=== PATIENT | female | born 1930 | race Caucasian/White ===

== ENCOUNTER 2018-03-14 20:16 | Inpatient (IN) ==
[2018-03-14] MEDS ORDERED: ROCEPHIN 1 GM in NS 50 ML IV ONE (21:26)
[2018-03-14] MEDS ORDERED: NS 1,000 ML IV ONE (21:27)
--- NOTE | 2018-03-14 21:59 | Diag Imaging Result Doc PS360 ---
CHEST-1 VIEW - 03/14/2018 INDICATION: AMS COMPARISON: 02/24/2018 FINDINGS: There is cardiomegaly and pulmonary vascular congestion. There are ill-defined interstitial infiltrates in the lung bases, nonspecific but most suggestive of pulmonary edema. There are probably trace pleural effusions. IMPRESSION: Pulmonary edema. Electronically signed by Rakesh Garcia 03/14/2018 9:56 PM
[2018-03-14 22:21] LABS: BASO# 0.02 X1000 (0.0-0.2); BASO% 0.1 % (0.0-0.8); EOS# 0.01 X1000 (0.0-0.7); EOS% 0.1 % (0.0-10.0); HEMATOCRIT 41.3 % (37.0-47.0); HEMOGLOBIN 13.6 g/dL (12.0-16.0); IMM GRAN# 0.22 X1000 (0.0-0.04); IMM GRAN% 1.4 % (0.0-0.5); LYMPH# 2.07 X1000 (1.2-3.4); LYMPH% 12.9 % (20.5-51.1); MCH 28.3 PG (27-31); MCHC 32.9 g/dL (33-37); MONO# 0.98 X1000 (0.11-0.59); MONO% 6.1 % (1.7-9.3); MPV 12.5 FL (7.4-10.4); NEUT# 12.71 X1000 (1.4-6.5); NEUT% 79.4 % (42.2-75.2); PLT 256 X1000 (130-400); RDW 14.9 % (11.5-14.5); WBC 16.01 X1000 (4.8-10.8)
[2018-03-14 22:34] LABS: INR 2.23; PROTIME 26.4 Seconds (11.0-16.0)
[2018-03-14 22:35] LABS: PTT 38.3 Seconds (22.3-41.8)
[2018-03-14 22:51] LABS: ALB/GLOB RATIO 1.1; ALBUMIN 3.2 g/dL (3.5-5.0); CALCIUM 8.3 mg/dL (8.8-10.2); POTASSIUM 4.8 mmol/L (3.5-5.1); TOTAL BILIRUBIN 1.26 mg/dL (0.20-1.00)
[2018-03-14] MEDS ORDERED: CARDIZEM IV ONE (23:16)
[2018-03-14 23:28] LABS: BILIRUBIN URINE SMALL (NEGATIVE); BLOOD URINE SMALL (NEGATIVE); COLOR YELLOW; GLUCOSE URINE NEGATIVE (NEGATIVE); KETONE URINE 10 mg/dL (NEGATIVE); LEUKOCYTES URINE SMALL (NEGATIVE); NITRITE URINE NEGATIVE (NEGATIVE); PROTEIN URINE 30 mg/dL (NEGATIVE); SP GRAVITY URINE 1.022; TURBIDITY URINE CLEAR (CLEAR); URINE SOURCE CATH; UROBILINOGEN URINE NORMAL (NORMAL)
[2018-03-14 23:41] LABS: UR EPITHELIAL CELLS >10 /HPF (<10); URINE BACTERIA NEGATIVE /HPF; URINE RBC <10 /HPF (<10); URINE WBC <10 /HPF (<10)
[2018-03-14 23:49] LABS: URINE CASTS NONE SEEN; URINE CRYSTALS NONE SEEN; URINE SMALL ROUND CELLS NONE SEEN; URINE YEAST NONE SEEN
[2018-03-14 23:58] LABS: CK INDEX 3.7 (0.0-2.5); CK-MB 16.56 ng/mL (0.0-5.0)
--- NOTE | 2018-03-15 01:51 | PROVIDER DOCUMENTATION ---
This chart was entered by Ainsley Marie Scribe, acting as scribe for Monika Bo MD. HPI-General Adult - General Chief Complaint: Abnormal Lab[s] Stated Complaint: ABNORMAL LABS Time Seen by Provider: 03/14/18 21:04 Source: patient Allergies/Adverse Reactions: Patient Allergies Allergy/AdvReac Type Severity Reaction Status Date / Time codeine Allergy Severe syncope Verified 03/14/18 22:35 oxycodone AdvReac Severe Unknown Verified 03/14/18 22:35 Home Medications: Home Medication List Medication Instructions Recorded Confirmed Last Taken Type Aspirin 81 mg PO DAILY 05/14/13 03/14/18 09/30/14 08:30 History 81 Sotalol [Betapace] 40 mg PO HS 05/14/13 03/14/18 10/01/14 07:00 History 40 Multivitamin [Multivitamins] 1 each PO DAILY 08/11/14 03/14/18 09/30/14 08:30 History 1 Apixaban [Eliquis] 2.5 mg PO DAILY tablet 03/03/18 03/14/18 Unknown Rx Calcitonin [Fortical] 1 spray JAMES DAILY bottle 03/03/18 03/14/18 Unknown Rx Doxycycline Hyclate 100 mg PO BID #60 tab 03/03/18 03/14/18 Unknown Rx Buspirone HCl 5 mg PO BID 03/14/18 03/14/18 Unknown History Calcitonin [Calcitonin-[place]] 1 spray JAMES DAILY 03/14/18 03/14/18 Unknown History Mag Hydrox/Al Hydrox/Simeth 40 mg PO Q4H PRN PRN 03/14/18 03/14/18 Unknown History [Mylanta Maximum Strength Liq] Ranitidine HCl 150 mg PO BID 03/14/18 03/14/18 Unknown History Sotalol [Betapace] 80 mg PO DAILY 03/14/18 03/14/18 Unknown History - History of Present Illness -Gen Adult Nature of Presenting Problems: 87 Y/O F PRESENTS TO ED WITH GENERAL ADULT. PT HAS A HX OF DEMENTIA, AFIB, ALCOHOL DEPENDENCE. SENT HERE DUE TO ABNORMAL LABS, ELEVATED LIVER ENZYMES,CK, WBC. POOR HISTORIAN. NURSE FROM [facility] STATES THAT SHE'S A&OX3, NOT DRINKING FLUID FOR FEW DAYS. PT STATES THIRSTY. Location of Pain/Injury: reports: generalized Pain Radiation: reports: no radiation Quality of Pain: reports: none Severity: reports: moderate Onset/Duration: reports: this evening Timing: reports: still present Context/Activities at Onset: reports: none Modifying Factors: improves with: nothing Associated Symptoms: reports: other (dehydrated). denies: constipation, EENT symptoms, fever/chills, muscle aches, sinus congestion/drainage, nausea, pain with inspiration, weakness Review of Systems - Adult - REVIEW OF SYSTEMS - ADULT Constitutional: denies: chills, fever Eyes: reports: no symptoms reported Ears, Nose, Mouth & Throat: reports: other (dehydrated). denies: ear discharge , nose pain, loose teeth Cardiovascular: reports: no symptoms reported Respiratory: reports: no symptoms reported Gastrointestinal: reports: no symptoms reported Genitourinary: reports: no symptoms reported Musculoskeletal: reports: no symptoms reported Integumentary: reports: no symptoms reported Neurological: reports: no symptoms reported Psychiatric: reports: no symptoms reported Endocrine: reports: increased thirst Hematologic/Lymphatic: reports: no symptoms reported Allergic/Immunologic: reports: no symptoms reported All Other Systems: Reviewed and Negative Past History - Adult - PAST MEDICAL HISTORY-ADULT Review of Records: reports: Old Records Reviewed, Nursing Assessment Review, Medications Reviewed, Social history reviewed & non-contributory. Major Childhood Illnesses: reports: denies history Cardiovascular: reports: cardiac disease, HTN Musculoskeletal: reports: osteoporosis Endocrine/Immune: reports: thyroid disorder (benign thyroid nodule) - PRIOR SURGERIES/PROCEDURES Surgical/Procedure History: reports: orthopedic (extremity), back/neck - IMMUNIZATION STATUS Childhood Immunizations: See Nurse Assessment Flu Vaccine: See Nurse Assessment - FAMILY HISTORY Family History: reviewed, not pertinent - SOCIAL HISTORY Smoking: non-smoker Substance Use: none/never Alcohol Use Frequency: sober (former use) Living Situation: care facility Physical Exam-General - PHYSICAL EXAM-ADULT Initial Vital Signs Reviewed: Yes - CONSTITUTIONAL General Appearance: alert, no apparent distress - HEAD, EARS, NOSE, MOUTH & THROAT HENMT: other (dry mucous membrane). negative: moist mucous membranes - NECK Neck: supple - RESPIRATORY Respiratory: lungs clear - CARDIOVASCULAR Cardiovascular: no murmur, tachycardia (150s), irregularly irregular - GASTROINTESTINAL (ABDOMEN) Abdominal Exam: non tender, soft - LYMPHATIC Lymphatic: no adenopathy - MUSCULOSKELETAL Back Exam: no CVA tenderness Extremity: normal range of motion - SKIN Integumentary: normal color - NEUROLOGIC Neurologic: no motor/sensory deficits Progress - PLAN OF CARE/RESULTS Progress/Plan/Lab Results: Vital Signs - 8 hr 03/14/18 21:22 Pulse Rate 46 L Respiratory Rate 13 Blood Pressure 101/83 Orders Category Date Time Status Cardiac Monitoring DIRECTED Care 03/14/18 21:32 Active IV Insertion ORDERED Care 03/14/18 21:32 Active Notify MD of + Sepsis Screen NOW Care 03/14/18 21:32 Active Notify Physician As Ordered Care 03/14/18 21:32 Active CHEST-1 VIEW [RAD] Stat Exams 03/14/18 21:32 Ordered BLOOD CULTURE [BLDCUL] Stat Lab 03/14/18 21:32 Uncollected CBC WITH DIFF [HEME] Stat Lab 03/14/18 21:32 Uncollected CK PROFILE [SP CHEM] Stat Lab 03/14/18 21:32 Uncollected COMPREHENSIVE METABOLIC PANEL [CHEM] Stat Lab 03/14/18 21:32 Uncollected LACTATE, PLASMA [CHEM] Q3H Lab 03/14/18 21:45 Uncollected LACTATE, PLASMA [CHEM] Q3H Lab 03/15/18 00:45 Uncollected LACTATE, PLASMA [CHEM] Q3H Lab 03/15/18 03:45 Uncollected PROTIME WITH INR [COAG] Stat Lab 03/14/18 21:32 Uncollected PTT [COAG] Stat Lab 03/14/18 21:32 Uncollected TROPONIN T Stat Lab 03/14/18 21:32 Uncollected URINALYSIS W/POSS RFLX CULT [URINALYSIS] Stat Lab 03/14/18 21:32 Uncollected 0.9% Sodium Chloride Inj [Ns] 1,000 ml Med 03/14/18 21:27 Active IV 999 mls/hr CefTRIAXONE [Rocephin] 1 gm Med 03/14/18 21:26 Active 0.9% Sodium Chloride Inj [Ns] 50 ml IV NOW Oxygen Device Stat Oth 03/14/18 21:32 Active EKG [EKG] Stat Ther 03/14/18 21:21 Ordered Result Diagrams: 03/14/18 21:40 03/14/18 21:40 - REASSESSMENT Reassessment #1 Time Reassessed: 00:00 Status: improving (HR 110-115 after 1 dose Cardizem 10 Mg. will admit to the Hospital for further management.) - EKG 1 Time of EKG reading by physician:: 22:08 EKG Read and Signed by:: Monika Bo EKG Interpretation (*Must complete 3 of following elements*): Abnormal Rate: 147 Rhythm: afib with rvr Comments: abnormal ecg - CT/MRI 1 CT Study: Abdomen, Orbits Impression: Abnormal (status pot cholecystectomy. bialteral pleural effusions. bilateral interstitial infiltrates, findings progressive compared to previous exams. pulmonary edema oy lymphangitic carcinomatosis are considerations. extensive sigmoid colon diverticulosis. possible diverticulitis involving the distal sigmoid colon, a new finding compared to previous. RUQ subhepatic edema, progressive compared to the previous exam nonspecific may reflect liver diseases are colitis.) 2 CT Study: Angiogram Impression: Normal CT Results: no pe - CONSULTS/PCP/HOSPITALIST Notification #1 *Consult/PCP/Hospitalist*: Dr. Suarez Time Discussed: 23:52 Consult Disposition: Admit (Cardizem and admit.) #2 Consult: Dr. Lucio gutiérrez Time Discussed: 00:07 Consult Disposition: Admit (Accepted.) Departure - Departure Date of Disposition Decision: 03/15/18 Time of Disposition Decision: 00:07 DIAGNOSIS: JOSE (acute kidney injury), Atrial fibrillation with rapid ventricular response , Severe dehydration Leukocytosis Qualifiers: Leukocytosis type: other Qualified Code(s): D72.828 - Other elevated white blood cell count Pulmonary edema Qualifiers: Chronicity: acute Qualified Code(s): J81.0 - Acute pulmonary edema Disposition: ADMITTED INPATIENT 09 Certified Medical Emergency: Emergent Condition: Serious Referrals and Follow-Ups: Nito Crain MD [Primary Care Provider] - - Critical Care Note This patient required my direct & personal management of CC.: Yes Attestation - Physician/ KALINA Attestation Patient care was provided by Advanced Practice Provider:: No The physician spent face to face time with patient:: Yes Advanced Practice Provider documentation review:: Supervising physician onsite and consulted in the evaluation and care of this patient. The physician did have a face to face encounter with the patient. This chart was documented by the indicated scribe, (Ainsley aMrie, Mickey) and accurately reflects the services I performed and decisions made by me, Monika Bo MD, as attested by the provider's signature.
[2018-03-15] MEDS ORDERED: CARDIZEM IV ONE ×2 (06:26→11:53)
[2018-03-15] MEDS ORDERED: NS 250 ML IV SCH ×2 (06:30→07:00)
--- NOTE | 2018-03-15 07:17 | EKG Report ---
Test Performed on : 03/14/2018 10:08:38 PM Test Reason : CP Blood Pressure : / mmHG Vent. Rate : 147 BPM Atrial Rate : 300 BPM P-R Int : 000 ms QRS Dur : 080 ms QT Int : 308 ms P-R-T Axes : 000 066 004 degrees QTc Int : 482 ms Atrial flutter. with variable AV block. Abnormal ECG When compared with ECG of 03-MAR-2018 06:57, Atrial flutter. has replaced Sinus rhythm. Vent. rate has increased BY 67 BPM Questionable change in QRS axis T wave inversion no longer evident in Anterior leads Unconfirmed Result
--- NOTE | 2018-03-15 07:52 | Diag Imaging Result Doc PS360 ---
EXAM: CT ABDOMEN/PELVIS W/O CONTRAST INDICATION: elevated liver enzyme TECHNIQUE: This exam was performed using automated exposure control, adjustment of mA or kV according to patient size, and/or use of iterative reconstruction technique. COMPARISON: 02/17/2018 FINDINGS: There is a small to moderate-sized right pleural effusion and a small left effusion. There is atelectasis at both lung bases. There are bilateral interstitial and airspace infiltrates suggesting pulmonary edema +/- pneumonia. There is cardiomegaly. There has been a prior cholecystectomy. There is stable mild compensatory dilatation of the common bile duct, expected. The liver, spleen, pancreas, and adrenal glands are essentially unremarkable as imaged with unenhanced CT. There are a couple of hyperdense nodules involving the left renal cortex that are stable. Statistically they most likely represent complex cyst containing blood products but are technically nonspecific when no IV contrast is administered. The kidneys are essentially unremarkable, otherwise. There is a Davidson catheter in the urinary bladder and the bladder is nondistended. As imaged, the reproductive tract is essentially unremarkable. There is extensive diverticulosis coli involving the sigmoid colon. There is trace free fluid layering in the pelvis. It is nonspecific. I feel that sigmoid colonic diverticulitis is unlikely as there is no obvious colonic wall thickening, but I suppose mild diverticulitis is possible. There is a small amount of subhepatic mesenteric edema in the right upper quadrant that is nonspecific. It is situated between the right hepatic lobe and the hepatic flexure of the colon. Note that there is also no evidence of colonic wall thickening here as well. There is no evidence of bowel obstruction. The remainder of the GI tract is essentially unremarkable as imaged. A small umbilical hernia containing only fat. The bones are osteopenic. There is multilevel spondylosis and multiple compression deformities throughout the visualized spine similar to the previous study. IMPRESSION: 1.Bilateral pleural effusions and bilateral infiltrates at the lung bases that are predominantly interstitial as detailed above. 2.Diverticulosis coli with trace nonspecific fluid layering in the pelvis. Please see above discussion. 3.Nonspecific focal mesenteric edema in the subhepatic right upper quadrant. 4.Other external/nonacute findings detailed above. Electronically signed by Pj Green 03/15/2018 7:50 AM
--- NOTE | 2018-03-15 08:43 | HISTORY AND PHYSICAL ---
PRIMARY CARE PHYSICIAN: Dr. Crain. CHIEF COMPLAINT: Weakness and abnormal labs. HISTORY OF PRESENT ILLNESS: This is an 87-year-old alert female with a history of hypertension, hyperlipidemia, chronic alcoholism, chronic atrial fibrillation, and dementia, who apparently was discharged from the hospital about a week or so ago. She was sent to the rehab facility. During her course there she was doing well; however, over the past several days she was getting weak and was not eating well. She had laboratories drawn there which did show that she was in renal failure and also showed that she had abnormal LFTs. Due to her finding she was sent to the emergency department. In the ER, she was evaluated. She was noted to be in atrial fibrillation with rapid ventricular response. She was started on Cardizem. Due to her presenting symptoms, she will require admission for further management. At the time of my examination, the patient is a poor historian. However, at time of my examination, she had denied any headache, fever, chills, chest pain, shortness of breath, or any weight changes. Most of the history is obtained from the son and previous records. PAST MEDICAL HISTORY: Past medical history includes hypertension, hyperlipidemia, chronic alcoholism, chronic atrial fibrillation, dementia, and lumbar compression fractures. PAST SURGICAL HISTORY: Right knee surgery. ALLERGIES: Codeine and oxycodone. MEDICATIONS: Current medications are as listed in the medication reconciliation sheet. SOCIAL HISTORY: No history of smoking. She admits to drinking scotch and wine daily, denies any illicit drug use. FAMILY HISTORY: No history of coronary disease. REVIEW OF SYSTEMS: Fourteen point review of systems is as in HPI. Other systems are negative. PHYSICAL EXAMINATION: GENERAL: A frail elderly female. She is resting comfortably now. VITAL SIGNS: Temperature 97.5 degrees, pulse 153, respirations 19, blood pressure 125/80. HEENT: Atraumatic and normocephalic. Extraocular movements are intact, PERRLA. NECK: No masses. CHEST: Bibasilar rales. CARDIOVASCULAR: Irregular. ABDOMEN: Abdomen is soft, positive bowel sounds. EXTREMITIES: Trace edema. NEUROLOGIC: She is awake, alert, and oriented times 2. GENITOURINARY: No bladder distention. SKIN: Skin is warm. LABORATORIES AND STUDIES: WBC 16.01, hemoglobin 13.6, hematocrit 41.3, platelets 256,000. Sodium 143, potassium 4.8, chloride 105, CO2 is 15 BUN is 61, creatinine is 2.0, glucose is 93. AST is 677, ALT is 382, alkaline phosphatase is 111, proBNP is 14,329. Chest x-ray shows pulmonary edema. ASSESSMENT: This is an 87-year-old elderly female with a history of hypertension, hyperlipidemia, chronic atrial fibrillation, and dementia who was brought to the emergency department due to abnormal labs that were noted while she was at the rehabilitation facility. The patient initially was found to be in atrial fibrillation with rapid ventricular response. She was given IV Cardizem. She was also noted to be in renal failure and have abnormal liver function tests. Due to these findings, she will require admission for further management. 1. Atrial fibrillation with rapid ventricular response. 2. Leukocytosis. 3. Status post recent treatment for pneumonia. 4. Acute kidney injury. 5. Abnormal liver function tests. 6. Chronic alcoholism. 7. Dementia. PLAN: 1. We will admit the patient to [facility]. 2. Continue with Cardizem and consult Cardiology. 3. We will check blood cultures and start the patient on empiric antibiotics. 4. Continue with gentle hydration and monitor renal function. 5. Check an abdominal ultrasound to evaluate her liver. 6. Restart other home medications. 7. Put the patient on DVT prophylaxis with SCDs. 8. We will continue to follow and reassess and make further recommendations based on the patient's clinical course. cc: MD Nito Dunlap MD
[2018-03-15] MEDS ORDERED: FORTICAL NAS SCH (09:00)
[2018-03-15] MEDS ORDERED: BUSPAR PO SCH ×2 (09:00→09:39)
[2018-03-15] MEDS: ZANTAC PO SCH ×3 (09:07→21:37)
[2018-03-15] MEDS: ELIQUIS PO SCH (09:07)
[2018-03-15] MEDS: THERA M PLUS PO SCH (09:08)
[2018-03-15] MEDS: BETAPACE PO SCH ×2 (09:08→21:36)
[2018-03-15] MEDS: ASPIRIN PO SCH ×2 (09:10→09:25)
[2018-03-15] MEDS: ZOFRAN IV PRN (09:21)
[2018-03-15] MEDS ORDERED: NS 1,000 ML IV ONE (09:27)
--- NOTE | 2018-03-15 10:18 | Diag Imaging Result Doc PS360 ---
US ABDOMEN-COMPLETE - 03/15/2018 INDICATION: ABNORMAL LFT COMPARISON: CT from 03/15/2018 FINDINGS: There is mild diffuse fatty change of the liver. There is a hypoechoic left renal cyst measuring 1.6 cm. This probably a complicated cyst. Otherwise both kidneys are normal. The gallbladder is absent. Common bile duct measures 4 mm. No free fluid. The pancreas and spleen are normal. Aorta, IVC, and main portal vein are patent. IMPRESSION: Mild fatty change of the liver. Complicated cyst of the left kidney. Electronically signed by Rakesh Garcia 03/15/2018 10:16 AM
[2018-03-15] MEDS: CARDIZEM 100 MG/NS 100 MG/100 ML IVPB IV SCH (12:59)
--- NOTE | 2018-03-15 19:14 | CARDIOLOGY CONSULTATION ---
DATE: 03/15/2018 REQUESTING PHYSICIAN: Dr. Crain of the hospitalist service. REASON FOR CONSULTATION: Atrial fibrillation with rapid response. HISTORY OF PRESENT ILLNESS: Ms. Mcfarlane is an unfortunate 87-year-old female that is known to me. I saw her last time at my office back in May 2013. Since then, she had been seen in the hospital by myself around May 2014. Lately she was admitted to the hospital on February 17 with pneumococcal pneumonia. She had a positive blood culture for Streptococcus pneumoniae. She was sent to a group home on March 03. For the past few days she has not been doing well at the group home, getting progressively weaker, not eating well, and they did blood work that showed abnormalities, and also they noted that her heart rate was fast and irregular. They recommended admission to the hospital, and they consulted us because of the atrial fibrillation with rapid response. The patient denies having any pain in the chest. She just feels weak. She is lethargic. She recognizes me. She denies having any swelling of her legs or pain in the legs. She has not had any syncopal episodes. PAST MEDICAL HISTORY: Her past history is significant for paroxysmal atrial fibrillation in the past. Now it has become permanent. The patient has had previous syncopal episodes. She has moderately severe mitral regurgitation documented in the past. She has a history of hypertension and hyperlipidemia. She has had osteoporosis. PAST SURGICAL HISTORY: Hip surgery, collarbone surgery, knee surgery, polyp on the thyroid gland removed, cataract extraction SOCIAL HISTORY: She is a . She has 2 grown-up children. She is not a smoker. She used to drink alcohol regularly. HOME MEDICATIONS: At the time of this admission, these included: 1. Apixaban 2.5 daily. 2. Aspirin 81 daily.l 3. Buspirone 5 mg twice daily. 5. Calcitonin one spray nasally. 6. Doxycycline 100 twice daily. 7. Sotalol 40 at bedtime and 80 in the morning. LABORATORY STUDIES: Her laboratory studies upon presentation showed a white count of 16,000 and a PT of 26.4 with an INR of 2.23. Sodium is 143, potassium 4.8, BUN 61, creatinine 2.0. Her AST is 77, ALT 382, alkaline phosphatase 111. CPK is 445. Pro-BNP is 14,000. A chest x-ray done in the emergency room showed pulmonary edema, ill-defined interstitial infiltrates in the lung bases. Abdominal ultrasound shows mild fatty liver, complicated cyst of the left kidney. Her EKG back on February 18 showed that she was in sinus rhythm. On March 03, her EKG showed that she was also in sinus rhythm, so she really has paroxysmal atrial fibrillation and no permanent atrial fibrillation. PHYSICAL EXAMINATION: Vital Signs: Blood pressure is 123/84, pulse rate 122, temperature 97.4, respirations 18. General: She is elderly and appears to be somewhat confused and lethargic. HEENT: She has an IV on the left side of the neck. Chest: Shows diffusely diminished breath sounds. She has a few rales. Cardiovascular: Heart sounds are tachycardic, irregularly irregular, with a systolic murmur 2/6 over the apex of the left ventricle. Abdomen: Soft and nontender. Extremities: Show decreased pulses. No peripheral edema. Neurologic: Follows commands. Moves 4 extremities. IMPRESSION: 1. Patient with paroxysmal atrial fibrillation with rapid response. 2. Congestive heart failure with diastolic dysfunction. 3. History of pneumonia recently with positive blood culture for Streptococcus pneumoniae. 4. Passive liver congestion versus acute hepatic injury. 5. Acute renal dysfunction/renal failure. RECOMMENDATIONS: 1. We will put the patient on IV Cardizem to control her heart rate, which is really going fast right now. 2. We will follow her closely. 3. Given her age and her general frailty and decreased functional status, her prognosis is quite guarded. cc: MD Nito Linton MD
[2018-03-15] MEDS: FORTICAL NAS SCH (21:37)
[2018-03-16] MEDS: CALMOSEPTINE OINTMENT TOP PRN (03:37)
--- NOTE | 2018-03-16 04:45 | PROGRESS NOTE ---
DATE: 03/15/2018 SUBJECTIVE: The patient was admitted overnight. I spoke at length with her son, who recapture rehabilitation stay at [facility] for me. The patient had a rapid decline this weekend, and only at the extreme urging of the patient's family, where she transferred to [place] for admission. OBJECTIVE: Vital Signs: Temperature 97.4, pulse rate of 117, blood pressure 123/84. Lungs: Are clear. Cardiovascular: Irregularly, irregular at approximately 90 beats per minute at the time of my examination in the morning. The patient's oral mucosa is dry and almost parched. She has no peripheral edema. Lungs: Clear to auscultation. LABORATORIES: Reviewed. ASSESSMENT AND PLAN: 1. The admission is a bit difficult to put together. At the same time, there is an elevated proBNP and a diagnosis of congestive heart failure, but she is also described as markedly dehydrated and having acute kidney injury. I do not really feel it can be both at the same time. In my viewpoint, she is dehydrated clinically, and I plan to give her a bolus of fluids. She is prone to fluid overloaded at times, and we will have to watch this. But at the present time, none of those physical signs or symptoms seem to be predominant. 2. I was distressed to learn that at the rehabilitation place, someone had placed the patient on a benzodiazepine. She had been taken off of that type of medication during her hospitalizations for over-sedation and change in mental status. 3. Nutrition is strongly encouraged. We will restart physical therapy as soon as practical. 4. The patient's atrial fibrillation had clearly gotten out of control. She received some Cardizem last night. When I rechecked the patient's vital signs, her heart rate had slowed down considerably from admission. 5. Do not resuscitate level 1. cc: Nito Crain MD
[2018-03-16 06:05] LABS: BASO# 0.03 X1000 (0.0-0.2); BASO% 0.2 % (0.0-0.8); EOS# 0.01 X1000 (0.0-0.7); EOS% 0.1 % (0.0-10.0); HEMATOCRIT 39.9 % (37.0-47.0); IMM GRAN# 0.21 X1000 (0.0-0.04); IMM GRAN% 1.5 % (0.0-0.5); LYMPH# 1.76 X1000 (1.2-3.4); LYMPH% 12.8 % (20.5-51.1); MCH 28.9 PG (27-31); MCHC 32.6 g/dL (33-37); MCV 88.7 FL (81-99); MONO# 0.76 X1000 (0.11-0.59); MONO% 5.5 % (1.7-9.3); MPV 12.4 FL (7.4-10.4); NEUT# 10.97 X1000 (1.4-6.5); NEUT% 79.9 % (42.2-75.2); PLT 231 X1000 (130-400); RDW 15.5 % (11.5-14.5); WBC 13.74 X1000 (4.8-10.8)
[2018-03-16 06:20] LABS: CREATININE 1.4 mg/dL (0.5-0.9); POTASSIUM 4.9 mmol/L (3.5-5.1)
[2018-03-16] MEDS: CARDIZEM 100 MG/NS 100 MG/100 ML IVPB IV SCH (06:38)
[2018-03-16] MEDS ORDERED: 1/2 NS 500 ML IV ONE (07:20)
[2018-03-16] MEDS: ASPIRIN PO SCH (08:25)
[2018-03-16] MEDS: THERA M PLUS PO SCH (08:25)
[2018-03-16] MEDS: ZANTAC PO SCH ×2 (08:25→21:03)
[2018-03-16] MEDS: ELIQUIS PO SCH (08:25)
[2018-03-16] MEDS: BETAPACE PO SCH ×2 (08:26→21:03)
[2018-03-16] MEDS: FORTICAL NAS SCH (08:26)
--- NOTE | 2018-03-16 11:24 | PROGRESS NOTE ---
DATE: 03/16/2018 SUBJECTIVE: In looking through the patient's notes and talking to the family, she appeared better yesterday. Activity level minimal. She received a food bolus and some rate-controlled medication for her atrial fibrillation. Dr. Daniel was consulted. OBJECTIVE: Vital signs: 96.4, 76, 17, 110/67, 98% saturated on 3 liters nasal cannula. General: The patient is awake and alert. Appropriate mentation, asking questions, observed in the baseline, but her hearing is so bad that is hard to assess for cognition. Neck: There is JVD noted on the right side in the recumbent or semi-recumbent position. The left side is obscured due to an EJ they put in, which is taped out fairly heavily. Lungs: Clear to auscultation. Cardiovascular: There is approximately 80 beats per minute that is irregular. She has 2/6 systolic murmur. Extremities: No peripheral edema. ASSESSMENT AND PLAN: 1. Patient's has acute kidney injury. Giving her a fluid bolus. I am going to give her a half- normal bolus today to try and get her electrolytes equilibrated and to further improve her renal function. In the past, she has been prone to fluid overload. This occurred during her last hospitalization, so I am just going to go with intermittent bolusing and monitor total fluid levels. The jugular venous distention noted on exam is of some concern. 2. Patient's atrial fibrillation is controlled with the addition of diltiazem. Dr. Daniel is following. The patient is really not a candidate for serious intervention. 3. The patient was discharged from the hospital last time with a fairly serious rash on her buttocks and thighs. I again consulted Wound Therapy to assess and treat this. 4. The patient's overall weakness has been improving at rehabilitation up until the last 2 days prior to admission. Plan to consult physical therapy to get the patient up in the chair as much as is tolerable. She is generally somewhat uncooperative and recalcitrant effort to get her up in the past. 5. The patient and family were encouraged strongly to eat and to drink regularly, and to cooperate with the medical care team. cc: Nito Crain MD
[2018-03-16] MEDS: POTASSIUM CHLORIDE 10 MEQ in D5 LR 1,000 ML IV SCH (15:53)
--- NOTE | 2018-03-16 16:40 | CARDIOLOGY PROGRESS NOTE ---
DATE: 03/16/2018 CHIEF COMPLAINT: Irregular heart beat. Confusion. Lethargy. SUBJECTIVE: Mrs. Mcfarlane is really just lying in bed without any desire to eat. She is in no pain. She does not appear to be in any distress. PHYSICAL EXAMINATION: Vital Signs: Blood pressure 110/53, temperature 97.6, pulse is about 95, respirations 16. Neurologic: She seems to follow commands. She does not want to have the nasal cannula in her nose. She interacts, however she appears to be despondent. HEENT: Unremarkable. Chest: Diminished breath sounds at bases. Cardiovascular: Heart sounds are irregularly irregular. Heart rate is not as fast as yesterday. Abdomen: Nontender. Extremities: Show no obvious edema. BLOOD WORK: Today, sodium is 147, potassium 4.9, BUN is 54, creatinine 1.4. C reactive protein yesterday was 21.33. Sed rate was 10. IMPRESSION: 1. Atrial fibrillation with rapid response. This is paroxysmal. 2. History of mitral regurgitation. 3. Recent pneumonia. 4. Liver dysfunction. 5. Acute renal insufficiency. RECOMMENDATIONS: 1. We will continue present management with IV diltiazem and IV fluids. We will discuss with Dr. Crain as to whether or not we could give her something to enhance her appetite or even discuss with patient's son and other members of the family the possibility of offering hospice if the patient does not seem to respond to current management. 2. Further advice will be forthcoming. cc: MD Nito Linton MD
[2018-03-17 06:30] LABS: CALCIUM 7.3 mg/dL (8.8-10.2); CREATININE 1.2 mg/dL (0.5-0.9); POTASSIUM 4.4 mmol/L (3.5-5.1)
[2018-03-17] MEDS: ZOFRAN IV PRN (08:27)
[2018-03-17] MEDS: POTASSIUM CHLORIDE 10 MEQ in D5 LR 1,000 ML IV SCH ×2 (08:33→22:13)
[2018-03-17] MEDS ORDERED: 1/2 NS 500 ML IV ONE (09:05)
--- NOTE | 2018-03-17 09:44 | Diag Imaging Result Doc PS360 ---
EXAM: CHEST-PORTABLE HISTORY: dyspnea, low O2 sat TECHNIQUE: Portable chest single view COMPARISON: 03/14/2018 FINDINGS: The heart is enlarged. There are moderate-sized bilateral pleural effusions. There is basilar atelectasis and there may be underlying infiltrates. There is also pulmonary edema. Overall the findings are more prominent than on the prior exam. IMPRESSION: Interval worsening. Electronically signed by Fransisco Levin 03/17/2018 9:41 AM
--- NOTE | 2018-03-17 10:37 | PROGRESS NOTE ---
DATE: 03/17/2018 SUBJECTIVE: The patient is disoriented this morning. The patient had a bowel movement in the bed and had to be cleaned up this morning. As they tried to move her about they noted that her blood pressure was markedly lower at 100/60 and that her oxygen saturation dropped as they tried to get her to sit up. When I saw the patient she was disoriented and alone in the room. OBJECTIVE: Vitals: At 8 o'clock - 97.6, 96, 20, and blood pressure 100/60, with 90% saturation on 2 L nasal cannula. Ins and outs showed positive 890. Telemetry strip showed a heart rate of 67 beats per minute, irregular. Respiratory: The patient had slightly diminished breath sounds in the left base, otherwise good air movement. No wheezing. Cardiovascular: Irregularly, irregular at approximately 65 to 70 beats per minute. Extremities: The extremities showed no peripheral edema. Neurologic: The patient responded to touch but not in a meaningful way. LABORATORY: Sodium 145, chloride 115, carbon dioxide 14, BUN 51, creatinine 1.2. ASSESSMENT AND PLAN: 1. When the patient was admitted to the hospital I told her son that fluid balance would be difficult with her acute kidney injury, relative dehydration, and history of congestive failure. This has proven to be absolutely true. Although her acute kidney injury is improving slightly, according to the numbers we still have a long way to go to get her electrolyte fluid management balanced. I plan to give her a small bolus today and a little bit of Lasix. The urine in her catheter bag was very dark. We will have to very delicately balance her fluids. 2. Atrial fibrillation, has been controlled. She is only on 5 mg of diltiazem and taking her sotalol p.o. Plan to discontinue the diltiazem. 3. Wound care assessment was ordered yesterday but I do not see any record of that on the computer having taken place. She is getting local care with topicals and seems to be doing well. She has no complaint of pain in that regard. 4. The patient's overall weakness was assessed by Physical Therapy yesterday. She did not respond well to physical therapy and complained of back pain and asked to be put back in the bed. She has not complained of back pain in weeks that I am aware of, so I am a bit dubious of this claim, but we will proceed in a delicate fashion to try and get her up and about. As I told her son prior to her discharge last time that if she was not able to gain her feet to any significant degree that she would within weeks to months in a bed-bound state. Unfortunately, this seems to be proving true as all of her parameters would lead me to believe that her heart condition and other issues are getting more difficult to manage as she has laid in the bed over the last weeks. 5. The patient and family have been encouraged strongly to eat and drink regularly. She is not really eating a lot. We have banded about the idea of adding some type of appetite stimulant, but unfortunately with her mental status the way that it is today I do not feel comfortable adding anything like Marinol or something that might aid in appetite. Also, there might be some fluid retention and mineralocorticoid effect if we were to add Megace, so I think that is relatively contraindicated. 6. Do not resuscitate level 1. I think the patient's long-term prognosis is grim. I will try and speak to the patient's son later today as he was not available this morning for consultation. cc: Nito Crain MD
[2018-03-17 11:26] LABS: URINE SOURCE CATH
[2018-03-17] MEDS ORDERED: LASIX IV ONE ×2 (11:30→11:47)
[2018-03-17 11:36] LABS: BILIRUBIN URINE NEGATIVE (NEGATIVE); BLOOD URINE LARGE (NEGATIVE); COLOR YELLOW; GLUCOSE URINE NEGATIVE (NEGATIVE); KETONE URINE TRACE mg/dL (NEGATIVE); LEUKOCYTES URINE LARGE (NEGATIVE); NITRITE URINE NEGATIVE (NEGATIVE); PROTEIN URINE 70 mg/dL (NEGATIVE); SP GRAVITY URINE 1.023; TURBIDITY URINE HAZY (CLEAR); UROBILINOGEN URINE NORMAL (NORMAL)
[2018-03-17 11:42] LABS: UR EPITHELIAL CELLS <10 /HPF (<10); URINE BACTERIA NEGATIVE /HPF; URINE RBC TNTC /HPF (<10); URINE WBC TNTC /HPF (<10)
[2018-03-17] MEDS ORDERED: LASIX ONE (11:42)
[2018-03-17] MEDS ORDERED: MORPHINE ONE (11:43)
[2018-03-17] MEDS ORDERED: MORPHINE IV ONE (11:47)
[2018-03-17] MEDS: THERA M PLUS PO SCH (11:51)
[2018-03-17] MEDS: ZANTAC PO SCH ×2 (11:51→22:12)
[2018-03-17] MEDS: FORTICAL NAS SCH (11:52)
[2018-03-17 11:59] LABS: URINE YEAST PRESENT
[2018-03-17] MEDS: ASPIRIN PO SCH (16:33)
[2018-03-17] MEDS: BETAPACE PO SCH ×2 (16:33→22:09)
[2018-03-17] MEDS: ELIQUIS PO SCH (22:12)
[2018-03-17] MEDS: ROCEPHIN 500 MG in NS 50 ML IV SCH (23:04)
[2018-03-18 05:30] LABS: BASO# 0.01 X1000 (0.0-0.2); BASO% 0.1 % (0.0-0.8); EOS# 0.02 X1000 (0.0-0.7); EOS% 0.2 % (0.0-10.0); HEMATOCRIT 39.7 % (37.0-47.0); HEMOGLOBIN 12.7 g/dL (12.0-16.0); LYMPH# 1.32 X1000 (1.2-3.4); LYMPH% 11.4 % (20.5-51.1); MCH 28.8 PG (27-31); MONO# 0.72 X1000 (0.11-0.59); MONO% 6.2 % (1.7-9.3); MPV 12.3 FL (7.4-10.4); NEUT% 82.1 % (42.2-75.2); PLT 206 X1000 (130-400); RBC 4.41 XMIL (4.2-5.4); RDW 17.9 % (11.5-14.5); WBC 11.57 X1000 (4.8-10.8)
[2018-03-18 05:52] LABS: CALCIUM 7.9 mg/dL (8.8-10.2); CREATININE 1.2 mg/dL (0.5-0.9); POTASSIUM 3.5 mmol/L (3.5-5.1)
[2018-03-18] MEDS: ASPIRIN PO SCH (09:06)
[2018-03-18] MEDS: BETAPACE PO SCH ×2 (09:06→22:20)
[2018-03-18] MEDS: ZANTAC PO SCH ×3 (09:07→22:23)
[2018-03-18] MEDS: FORTICAL NAS SCH (09:07)
[2018-03-18] MEDS: ELIQUIS PO SCH ×2 (09:07→22:20)
[2018-03-18] MEDS: THERA M PLUS PO SCH (09:07)
[2018-03-18] MEDS: POTASSIUM CHLORIDE 10 MEQ in D5 LR 1,000 ML IV SCH (10:24)
[2018-03-18] MEDS ORDERED: VASELINE TOP PRN ×2 (12:24→12:57)
[2018-03-18] MEDS: D5W + KCL 20 MEQ 1,000 ML IV SCH (16:44)
--- NOTE | 2018-03-18 18:29 | PROGRESS NOTE ---
DATE: 03/18/2018 SUBJECTIVE: The patient is asleep in her bed. There is no family present. The patient easily is roused but complains vociferously any time we touch her just to try and get a basic examination. Yesterday the patient was given high-dose Lasix with a considerable diuresis. Her fluid balance is very tenuous.Vital signs: 96.7, 66, 16, 107/43, 95% saturated on 5 L nasal cannula. PHYSICAL EXAM: The patient is arousable and can be alert but she is not really oriented to time, place or situation.Lungs: The patient's lungs are clear. There are slight diminished breath sounds on the left base. Cardiovascular: Irregularly irregular with a 2/6 systolic murmur. This is unchanged from previously. Extremities: Show no peripheral edema. Oral mucosa is dry, almost parched. LABORATORY: White cell count is 11.5, hematocrit 39.7, sodium is 150, potassium 3.5, BUN 46, creatinine 1.2. ASSESSMENT AND PLAN: 1. Acute kidney injury seems marginally better today. The patient's urine was very concentrated and she had clinical signs of dehydration yesterday. She was given Lasix by Cardiology with a fairly effective diuresis. Her breathing is better and remarkably her urine looks fairly clear this morning. 2. Atrial fibrillation is rate controlled. 3. The patient is hypotensive I think due to low intravascular volume. 4. Wound care has been consulted for rash. Davidson catheter remains in place. 5. Yesterday's downturn may have been mediated by urinary tract infection. Urinalysis drawn at that time showed the surprising finding of [id number]-[id number]-count white cells and red cells where she had a normal urinalysis only 2 days ago. There was also yeast present. The patient was dosed empirically with antibiotics and will also add some fluconazole today. 6. Physical therapy is going to be very difficult at the present time due to the patient's overall weakness and the delicacy of her overall condition. 7. The patient was encouraged to eat and drink regularly. I do not think that she is oriented at all and can do much on her own. 8. Do not resuscitate level 1. 9. There is no family present. I will try and make an attempt to talk with them tomorrow whether they are in the hospital room or not. cc: Nito Crain MD
[2018-03-18] MEDS: ROCEPHIN 500 MG in NS 50 ML IV SCH (22:19)
[2018-03-19 06:08] LABS: CALCIUM 8.3 mg/dL (8.8-10.2); CREATININE 0.9 mg/dL (0.5-0.9); POTASSIUM 3.2 mmol/L (3.5-5.1)
[2018-03-19] MEDS ORDERED: LASIX IV ONE (07:06)
[2018-03-19] MEDS: ELIQUIS PO SCH (08:27)
[2018-03-19] MEDS: BETAPACE PO SCH ×2 (08:27→21:58)
[2018-03-19] MEDS: POTASSIUM CHLORIDE 10% LIQUID PO SCH ×2 (08:27→21:58)
[2018-03-19] MEDS: ASPIRIN PO SCH (08:35)
[2018-03-19] MEDS: FORTICAL NAS SCH (08:35)
[2018-03-19] MEDS: THERA M PLUS PO SCH (08:36)
[2018-03-19] MEDS: ZANTAC PO SCH ×2 (08:36→21:58)
[2018-03-19] MEDS: CLINIMIX E 4.25%-5% SOLUTION 1,000 ML IV SCH (09:09)
--- NOTE | 2018-03-19 09:22 | PROGRESS NOTE ---
DATE: 03/19/2018 SUBJECTIVE: The patient is asleep in the bed, but easily arousable. She interacts and seems to have a sense of humor. I feel that she is capable of operating at her baseline when stimulated properly, but otherwise will lie there and moan. I spoke at length with her son, Clemente. OBJECTIVE: Vitals: Temperature 97.5, pulse 70, respiratory rate 18, blood pressure 113/49, 99% saturated on nasal cannula. General: As stated earlier, the patient was arousable and seemed to answer questions appropriately at her baseline level of interaction. She was able to appreciate a humorous remark that I made. Neck: There is no JVD. Lungs: The lungs are clear to auscultation in all strong. The patient was lying on her side and had really good listen to both lung bases, which remained clear. She had good air movement. No wheezing. Cardiovascular: Irregularly irregular at a controlled rate of 70. FLUID BALANCE FROM YESTERDAY: -1675. LABORATORY: Potassium was 3.2, CO2 was 22, BUN 33, creatinine 0.9. Blood sugar was 117. ASSESSMENT AND PLAN: 1. The patient's heart issues are being addressed, but it is very difficult to balance the patient's fluid intake with output. I discussed this at length with the patient's son. 2. The patient had evidence of urinary tract infection based on white cells drawn from her catheterization. She was started on Rocephin and subsequently has grown yeast. I have given her ketoconazole 200 mg daily and reduced her dose of Eliquis to 2.5 daily. Hopefully, that will be an appropriate balance to help her. I do not feel that it would benefit her to pull the Davidson catheter at the present time. We will continue the Rocephin. 3. The patient's overall mental status and level of interaction, although at times appropriate, has seemed to suffer through this hospitalization. She is not terribly cooperative and not eating and drinking a lot. I discussed this with the patient's son. The family was concerned about nutritional aspects and how she could ever recover without any nutritional supplementation. I told him I was very reluctant to put in an enteral feeding tube, but as a temporizing measure, I could add some amino acids per IV and more aggressively manage her fluid balance. I think we will try this and see where it goes. I think if her mental status improves significantly, she will be able to take adequate oral nutrition to recover. I do not see any benefit in putting in an NG tube. I discussed this with the family and they are aware. Also in discussion with the family, I noted that her long-term prognosis was poor. I am not sure that she would be appropriate for any rehab at the present time. If she shows marked good recovery in the next couple days, she may be able to return to rehabilitation situation, but even that would be tenuous. She is a Do Not Resuscitate Level 1, and I have asked her son to prepare for her to survive only a short time even with the best options available and the best possible recovery. cc: Nito Crain MD
[2018-03-19] MEDS: NIZORAL PO SCH (09:41)
[2018-03-19] MEDS: D5W + KCL 20 MEQ 1,000 ML IV SCH (15:40)
[2018-03-19] MEDS: ROCEPHIN 500 MG in NS 50 ML IV SCH (22:44)
[2018-03-20] MEDS: CLINIMIX E 4.25%-5% SOLUTION 1,000 ML IV SCH (03:42)
[2018-03-20 05:31] LABS: BASO# 0.01 X1000 (0.0-0.2); BASO% 0.1 % (0.0-0.8); EOS# 0.06 X1000 (0.0-0.7); EOS% 0.6 % (0.0-10.0); HEMATOCRIT 42.7 % (37.0-47.0); HEMOGLOBIN 13.6 g/dL (12.0-16.0); LYMPH# 1.15 X1000 (1.2-3.4); LYMPH% 11.6 % (20.5-51.1); MCH 28.9 PG (27-31); MCHC 31.9 g/dL (33-37); MCV 90.7 FL (81-99); MONO# 0.92 X1000 (0.11-0.59); MONO% 9.3 % (1.7-9.3); NEUT# 7.79 X1000 (1.4-6.5); NEUT% 78.4 % (42.2-75.2); PLT 209 X1000 (130-400); RBC 4.71 XMIL (4.2-5.4); RDW 18.7 % (11.5-14.5); WBC 9.93 X1000 (4.8-10.8)
[2018-03-20 05:59] LABS: CALCIUM 8.6 mg/dL (8.8-10.2); POTASSIUM 3.5 mmol/L (3.5-5.1); TOTAL BILIRUBIN 1.08 mg/dL (0.20-1.00); TOTAL PROTEIN 5.9 g/dL (6.3-8.3)
[2018-03-20] MEDS: LASIX IV SCH (09:15)
[2018-03-20] MEDS: ZANTAC PO SCH ×2 (09:15→21:33)
[2018-03-20] MEDS: BETAPACE PO SCH ×2 (09:15→21:33)
[2018-03-20] MEDS: NIZORAL PO SCH (09:15)
[2018-03-20] MEDS: THERA M PLUS PO SCH (09:15)
[2018-03-20] MEDS: POTASSIUM CHLORIDE 10% LIQUID PO SCH ×2 (09:15→21:33)
[2018-03-20] MEDS: ASPIRIN PO SCH (09:15)
[2018-03-20] MEDS: ELIQUIS PO SCH (09:15)
--- NOTE | 2018-03-20 09:19 | PROGRESS NOTE ---
DATE: 03/20/2018 SUBJECTIVE: The patient is awake and alert this morning. Her son is at bedside and states yesterday afternoon when he returned to check on her, she had undergone a somewhat miraculous recovery of her sensorium. She was sitting up in the chair, speaking with her [id number]-aid and was fully interacting and operating at her baseline at that point. She was not breathless. OBJECTIVE: Vital Signs: Temperature 97.5, pulse 70, respiratory rate 18, blood pressure 114/63, 96% saturated on 3 L nasal cannula. Fluid balance positive 80. Cardiovascular: The patient is irregularly irregular with a 2/6 systolic ejection murmur unchanged from previous exam. Lungs: Clear. There does not appear to be diminishment in the bases. When she begins to speak, you can tell that she struggles a little bit with breathing, but she is certainly not in extremis. Neuropsychiatric: The patient is alert, interactive, and operating at baseline. LABORATORY: White cell count 9.9, hematocrit 42.7, BUN is 37, creatinine 1, sodium is 147. ASSESSMENT AND PLAN: 1. The patient's atrial fibrillation is rate controlled. We are still trying to very gingerly balance her fluid intake and output. At present, she has 50-100 mL an hour of free water going in and 20 Lasix today. We will continue to monitor fluid status. 2. Urinary tract infection has been treated with antifungal and antibiotic. We will continue to monitor this. 3. The patient's overall mental status is improved. Her level of interaction is at baseline at present. I plan to try and get her up in the chair today. She was strongly encouraged to eat and drink. 4. I discussed the overall situation with the patient's son. He was aware of the gravity of the situation, but pleased with her improvement. No significant change in treatment plan at present time. We may entertain physical therapy after the holidays. cc: Nito Crain MD
[2018-03-20] MEDS: FORTICAL NAS SCH (09:23)
[2018-03-20] MEDS: D5W + KCL 20 MEQ 1,000 ML IV SCH (16:35)
[2018-03-20] MEDS: ROCEPHIN 500 MG in NS 50 ML IV SCH (22:04)
[2018-03-21] MEDS: CLINIMIX E 4.25%-5% SOLUTION 1,000 ML IV SCH ×2 (00:24→20:36)
[2018-03-21] MEDS: D5W + KCL 20 MEQ 1,000 ML IV SCH (02:31)
--- NOTE | 2018-03-21 07:41 | EKG Report ---
Test Performed on : 03/20/2018 10:05:16 AM Test Reason : dyspnea, afib Blood Pressure : / mmHG Vent. Rate : 064 BPM Atrial Rate : 064 BPM P-R Int : 178 ms QRS Dur : 092 ms QT Int : 522 ms P-R-T Axes : 056 021 055 degrees QTc Int : 538 ms Sinus rhythm. with premature atrial complexes. Moderate voltage criteria for LVH, may be normal variant T wave abnormality, consider anterior ischemia Prolonged QT Abnormal ECG When compared with ECG of 19-MAR-2018 06:28, (Unconfirmed) No significant change was found Confirmed by Jose L ECHEVERRIA, Marco Antonio Sanabria ([id number]) on 03/24/2018 8:40:04 AM
--- NOTE | 2018-03-21 07:52 | EKG Report ---
Test Performed on : 03/19/2018 06:28:22 AM Test Reason : dyspnea, afib Blood Pressure : / mmHG Vent. Rate : 070 BPM Atrial Rate : 070 BPM P-R Int : 202 ms QRS Dur : 080 ms QT Int : 454 ms P-R-T Axes : 000 025 038 degrees QTc Int : 490 ms Sinus rhythm. with premature supraventricular complexes. Prolonged QT Abnormal ECG When compared with ECG of 18-MAR-2018 07:14, (Unconfirmed) Sinus rhythm. has replaced Atrial fibrillation. T wave inversion less evident in Anterior leads QT has shortened Confirmed by Jose L ECHEVERRIA, Marco Antonio Sanabria ([id number]) on 03/24/2018 8:35:30 AM
--- NOTE | 2018-03-21 08:04 | EKG Report ---
Test Performed on : 03/18/2018 07:14:58 AM Test Reason : dyspnea, afib Blood Pressure : / mmHG Vent. Rate : 066 BPM Atrial Rate : 064 BPM P-R Int : 000 ms QRS Dur : 086 ms QT Int : 522 ms P-R-T Axes : 000 030 042 degrees QTc Int : 547 ms Atrial fibrillation. T wave abnormality, consider anterior ischemia Prolonged QT Abnormal ECG When compared with ECG of 14-MAR-2018 22:08, (Unconfirmed) Atrial fibrillation. has replaced Atrial flutter. Vent. rate has decreased BY 81 BPM T wave inversion now evident in Anterior leads Confirmed by Jose L ECHEVERRIA, Marco Antonio Sanabria ([id number]) on 03/24/2018 8:33:31 AM
--- NOTE | 2018-03-21 09:36 | PROGRESS NOTE ---
DATE: 03/21/2018 SUBJECTIVE: The patient is asleep in bed. Her son is at bedside. He states that he has noticed that she is breathing a little more rapidly than yesterday. She is still very sleepy and compared to yesterday's level of interaction, she has declined slightly. Review of nursing notes show 25% of her meals were consumed. She needs some feeding with assistance according to the son. OBJECTIVE: Vital signs: 97.6, 68, 18, 130/65, 96% saturated on 3 L nasal cannula. General: The patient is asleep. She does respond to my examination, but is not really talking. Lungs: She is very slightly tachypneic. She is not wheezing. There are some decreased breath sounds in the bases in the supine position. Cardiovascular: Irregularly irregular at approximately 60-70 beats per minute. She has a 2/6 systolic ejection murmur which has not changed. Extremities: There is no peripheral edema in the dependent areas. LABORATORIES: None were drawn today. ASSESSMENT AND PLAN: 1. The patient's heart condition with atrial fibrillation and congestive failure symptoms are relatively stable. She was slightly fluid positive overnight and we will continue to watch this. She is due for a dose of Lasix shortly and we will monitor that. We will redraw lab work in the morning to confirm her status. 2. The patient's nutritional status is being only slightly supported by her IV nutrition. I spoke with the son frankly that this was merely a temporizing measure hopefully to where she could recover and start eating and drinking regularly. Neither I nor the patient's son are in favor of an enteral feeding tube. We do not think that it would change her outcome. 3. I spoke frankly with the son again about how we have set a framework for recovery, but whether she recovers or not to a functional level is really not within the realm of our medical intervention. He is aware that we are struggling to maintain fluid balance and nutritional and cognitive aspects. 4. Do not resuscitate level 1. cc: Nito Crain MD
[2018-03-21] MEDS: ZANTAC PO SCH ×2 (09:38→20:36)
[2018-03-21] MEDS: ASPIRIN PO SCH (09:38)
[2018-03-21] MEDS: POTASSIUM CHLORIDE 10% LIQUID PO SCH ×2 (09:39→20:36)
[2018-03-21] MEDS: LASIX IV SCH (09:39)
[2018-03-21] MEDS: BETAPACE PO SCH ×2 (09:39→20:36)
[2018-03-21] MEDS: ELIQUIS PO SCH (09:39)
[2018-03-21] MEDS: NIZORAL PO SCH (09:40)
[2018-03-21] MEDS: FORTICAL NAS SCH (09:40)
[2018-03-21] MEDS: THERA M PLUS PO SCH (09:40)
--- NOTE | 2018-03-21 10:58 | CARDIOLOGY PROGRESS NOTE ---
DATE: 03/21/2018 CHIEF COMPLAINT: Irregular heartbeat. SUBJECTIVE: Ms. Mcfarlane is in a little better spirits today. She is more communicative. She is talking. She is still not very much into eating. She has no chest pain, no dyspnea. No abdominal pain. OBJECTIVE: Blood pressure is 130/65, temperature 97.6, pulse 68, respirations 18. She is awake, alert, oriented. She knows who I am. Her son is there, and she knows where she is at, and she knows it is [place]. HEENT is unremarkable. Chest sounds clear to auscultation and percussion. Heart sounds are irregularly irregular with an apical systolic murmur 2 to 3/6 in intensity consistent with mitral regurgitation. Abdomen is nontender. Extremities showed no obvious edema. Neurologic: As I said, she follows commands. She is more cooperative. She is in a good mood. DIAGNOSTIC DATA: Sodium is 147, potassium 3.5, BUN is 37, creatinine 1.0. IMPRESSION: 1. The patient has permanent atrial fibrillation. 2. Confusion. This has improved. The encephalopathy has receded. 3. Mitral regurgitation, moderate to severe. 4. Recent episode of pneumonia. 5. Renal insufficiency that has waxed and waned lately. RECOMMENDATIONS: At this point in time, I would suggest to continue IV hydration. Perhaps more free water would be a good idea because the sodium is elevated. At this point in time, she seems to be very comfortable. We will see her as needed. Please let us know if we can be of any further assistance. cc: MD Nito Linton MD
[2018-03-21] MEDS: ROCEPHIN 500 MG in NS 50 ML IV SCH (22:27)
[2018-03-22] MEDS: D5W + KCL 20 MEQ 1,000 ML IV SCH (03:26)
[2018-03-22 05:32] LABS: BASO# 0.02 X1000 (0.0-0.2); BASO% 0.2 % (0.0-0.8); EOS# 0.34 X1000 (0.0-0.7); EOS% 3.3 % (0.0-10.0); HEMATOCRIT 40.4 % (37.0-47.0); HEMOGLOBIN 12.9 g/dL (12.0-16.0); LYMPH# 1.44 X1000 (1.2-3.4); LYMPH% 13.8 % (20.5-51.1); MCH 29.2 PG (27-31); MCHC 31.9 g/dL (33-37); MCV 91.4 FL (81-99); MONO# 0.89 X1000 (0.11-0.59); MONO% 8.5 % (1.7-9.3); NEUT# 7.76 X1000 (1.4-6.5); NEUT% 74.2 % (42.2-75.2); PLT 156 X1000 (130-400); RBC 4.42 XMIL (4.2-5.4); RDW 18.6 % (11.5-14.5); WBC 10.45 X1000 (4.8-10.8)
[2018-03-22 06:12] LABS: AGAP 13; BUN 41 mg/dL (8-22); CALCIUM 8.2 mg/dL (8.8-10.2); CHLORIDE 99 mmol/L (98-107); COSMO 287; CREATININE 0.8 mg/dL (0.5-0.9); ESTIMATED GFR > 60; GLUCOSE 119 mg/dL (70-104); POTASSIUM 4.5 mmol/L (3.5-5.1); SODIUM 138 mmol/L (136-145); TCO2 26 mmol/L (25-35)
[2018-03-22] MEDS: BETAPACE PO SCH ×2 (09:50→20:21)
[2018-03-22] MEDS: ELIQUIS PO SCH (09:50)
[2018-03-22] MEDS: LASIX IV SCH (09:50)
[2018-03-22] MEDS: THERA M PLUS PO SCH (09:50)
[2018-03-22] MEDS: ZANTAC PO SCH ×2 (09:50→20:21)
[2018-03-22] MEDS: NIZORAL PO SCH (09:50)
[2018-03-22] MEDS: ZOFRAN IV PRN (09:50)
[2018-03-22] MEDS: ASPIRIN PO SCH (09:50)
[2018-03-22] MEDS: FORTICAL NAS SCH (09:51)
--- NOTE | 2018-03-22 09:53 | PROGRESS NOTE ---
DATE: 03/22/2018 SUBJECTIVE: The patient was a little more sedated yesterday morning. She reportedly did get up in the chair at some point. The patient's son stated that she did look better in the afternoon. She did eat a little bit in the afternoon. VITAL SIGNS: There are no vital signs present on the chart since 4 a.m. The 4 a.m. was 98, 71, 18, 113/79. The fluid balance has not been kept correctly for the last 2 days, and I really have no idea what her fluid balance is as a result of that inefficiency. Urine output has been reasonably good. The patient had a stool. PHYSICAL EXAMINATION: General: The patient is awake and alert. She is interactive at her baseline level of cognition. She is sitting up in the bed, having been cleaned up by the nursing staff. Lungs: Clear to auscultation bilaterally, possibly slightly decreased breath sounds in the bases. Cardiovascular: Irregularly irregular with 2/6 systolic ejection murmur unchanged from previously. Extremities: Show no peripheral edema by verbal report from the biomedical engineering internship staff. Buttocks: The rash on her bottom is of limited scope, although there are a couple of areas that are more severe than others. She still has a Davidson catheter. LABORATORY: White cell count is 10.45, hematocrit is 40.4. Sodium is 138, BUN 41, creatinine 0.8. ASSESSMENT AND PLAN: 1. The patient's cardiovascular issues have resolved to a significant degree. Although the ins and outs have not been kept appropriately, she appears to be relatively euvolemic. We will continue present influx of fluids along with a low dose of Lasix to keep her at that level. 2. The patient's nutritional status is poor. She was again encouraged to eat. We are going to try to mobilize the patient into the chair on a daily basis and see where this leads us. 3. The patient still has a Davidson catheter in. She is still on antibiotics and antifungal agents. I would love to discontinue this, but with her ongoing perineal rash I feel we will have to keep it in another day or two at the very least. 4. Skin rash. This appears to be improving according to verbal reports from the mechanical engineering technician staff. 5. The patient is do not resuscitate level 1. I think we have set an adequate framework for her recovery, whether her body due to age and condition and comorbidities is able to compensate remains to be seen. She is stable at present. The patient's son was present again today and we discussed potentialities. cc: Nito Crain MD
[2018-03-22] MEDS: CLINIMIX E 4.25%-5% SOLUTION 1,000 ML IV SCH (16:05)
[2018-03-22] MEDS: ROCEPHIN 500 MG in NS 50 ML IV SCH (22:04)
[2018-03-23] MEDS: D5W + KCL 20 MEQ 1,000 ML IV SCH (02:23)
[2018-03-23] MEDS: ELIQUIS PO SCH (09:42)
[2018-03-23] MEDS: LASIX IV SCH (09:42)
[2018-03-23] MEDS: BETAPACE PO SCH ×3 (09:44→21:00)
[2018-03-23] MEDS: FORTICAL NAS SCH (09:45)
[2018-03-23] MEDS: NIZORAL PO SCH (09:45)
[2018-03-23] MEDS: ZANTAC PO SCH ×3 (09:49→20:59)
[2018-03-23] MEDS: CLINIMIX E 4.25%-5% SOLUTION 1,000 ML IV SCH (12:26)
[2018-03-23] MEDS: ASPIRIN PO SCH ×2 (20:47→20:58)
[2018-03-23] MEDS: THERA M PLUS PO SCH ×2 (20:47→20:59)
[2018-03-23] MEDS: CALMOSEPTINE OINTMENT TOP PRN (21:45)
[2018-03-23] MEDS: ROCEPHIN 500 MG in NS 50 ML IV SCH (21:45)
--- NOTE | 2018-03-24 01:16 | PROGRESS NOTE ---
DATE: 03/23/2018 SUBJECTIVE: The patient's chart was reviewed. In summary, the patient was admitted on 03/15/2018 with weakness. Full evaluation revealed atrial fibrillation with rapid ventricular response, acute kidney injury, and urinary tract infection. While hospitalized, the patient has been treated appropriately for each. Atrial fibrillation is rate controlled with sotalol therapy. She is anticoagulated with Coumadin. Urinary tract infection is being treated with Rocephin therapy. Additionally, she grew yeast from her culture and she was treated appropriately with ketoconazole. With aggressive intervention as described, her overall condition has improved, although slowly. This morning, she was noted to be sitting upright in bed. She interacted appropriately. Encouragement was made for her to work with physical therapy and to sit in a chair during the day. This afternoon, upon my arrival, the patient was upright in a chair. She was more interactive with conversation. She denies fevers, chills, nausea, vomiting, shortness of breath, or chest discomfort. OBJECTIVE: Vital Signs: T-max 98.3 degrees, heart rate 64-106, respirations 15-22, blood pressure 100-146/50-76. General: Elderly, no acute distress. Cardiovascular: Irregularly irregular. No significant murmurs, rubs, or gallops. Pulmonary: Clear to auscultation bilaterally. Abdomen: Soft, nontender, and nondistended. Positive bowel sounds. Extremities: Moves all extremities well. No significant clubbing, cyanosis, or edema. Dermatologic: Evaluation reveals no evidence of rash. LABORATORY DATA: None. ASSESSMENT AND PLAN: 1. Urinary tract infection - the patient's urine culture grew only yeast. I am unsure whether the culture was drawn before or after antibiotics were provided. For now, we will continue Rocephin and ketoconazole therapy. We will defer further management to Dr. Crain. 2. Atrial fibrillation with rapid ventricular response - the patient does appear to be in atrial fibrillation this morning, although rate controlled. We will continue sotalol therapy. We will defer management to cardiology. 3. Anticoagulation - we will continue Eliquis therapy. 4. Profound weakness - as above, we discussed this in great detail. We will continue to encourage physical therapy. I am encouraged that the patient was upright in a chair this afternoon. 5. Volume status - the patient is improving with Procalamine and D5W for nutrition. Volume is being offset with daily IV Lasix. Clinically the patient appears to be euvolemic. We will continue to follow, especially as the patient continues to recover and transitions from intravenous to oral nutrition. 6. Malnutrition - the patient's p.o. intake remains marginal. As above, we will continue her current Procalamine and D5W. We will continue to encourage by mouth intake. 7. Disposition - at this point, the patient continues to require [facility] care in a hospital setting. We will plan discharge to rehabilitation once appropriate. cc: MD Nito Pryor MD
[2018-03-24] MEDS: D5W + KCL 20 MEQ 1,000 ML IV SCH (02:03)
[2018-03-24 05:25] LABS: BASO# 0.03 X1000 (0.0-0.2); BASO% 0.3 % (0.0-0.8); EOS# 0.26 X1000 (0.0-0.7); EOS% 2.9 % (0.0-10.0); HEMATOCRIT 42.5 % (37.0-47.0); HEMOGLOBIN 13.8 g/dL (12.0-16.0); IMM GRAN# 0.05 X1000 (0.0-0.04); IMM GRAN% 0.6 % (0.0-0.5); LYMPH# 1.53 X1000 (1.2-3.4); LYMPH% 17.2 % (20.5-51.1); MCH 29.2 PG (27-31); MCHC 32.5 g/dL (33-37); MCV 89.9 FL (81-99); MONO# 1.09 X1000 (0.11-0.59); MONO% 12.2 % (1.7-9.3); MPV 11.7 FL (7.4-10.4); NEUT# 5.96 X1000 (1.4-6.5); NEUT% 66.8 % (42.2-75.2); PLT 156 X1000 (130-400); RBC 4.73 XMIL (4.2-5.4); RDW 18.6 % (11.5-14.5); WBC 8.92 X1000 (4.8-10.8)
[2018-03-24 05:52] LABS: AGAP 15; BUN 30 mg/dL (8-22); CALCIUM 8.7 mg/dL (8.8-10.2); CHLORIDE 97 mmol/L (98-107); COSMO 283; CREATININE 0.8 mg/dL (0.5-0.9); ESTIMATED GFR > 60; GLUCOSE 116 mg/dL (70-104); POTASSIUM 4.5 mmol/L (3.5-5.1); SODIUM 138 mmol/L (136-145); TCO2 26 mmol/L (25-35)
[2018-03-24] MEDS: LASIX IV SCH (08:16)
[2018-03-24] MEDS: ELIQUIS PO SCH (08:16)
[2018-03-24] MEDS: CLINIMIX E 4.25%-5% SOLUTION 1,000 ML IV SCH (08:16)
[2018-03-24] MEDS: BETAPACE PO SCH ×2 (08:17→20:07)
[2018-03-24] MEDS: ASPIRIN PO SCH (08:27)
[2018-03-24] MEDS: THERA M PLUS PO SCH ×2 (08:27→08:31)
[2018-03-24] MEDS: ZANTAC PO SCH ×3 (08:27→20:07)
--- NOTE | 2018-03-24 09:51 | PROGRESS NOTE ---
DATE: 03/24/2018 SUBJECTIVE: Dr. Choi's notes from yesterday were reviewed. There was no family present. The patient was sitting up in a chair. She was asleep. She had barely taken 2 bites of her breakfast and seemed wholly disinterested in doing anything further. She was arousable and responded appropriately and quickly fell back to sleep when she was not focused. According to the MAR, she has not received any sedatives or any other medication which would make her that tired. OBJECTIVE: Vital Signs: 97.4, 64, 14, 117/48. General appearance: On physical examination, the patient is arousable and reasonably alert temporarily and responds appropriately. She is functioning at or around baseline with the exception of the level and ease of sedation. Lungs: Clear. Cardiovascular: Irregularly irregular with 2/6 systolic ejection murmur. Extremities: No peripheral edema. LABORATORY: Hematocrit is 42.5. BUN 30, creatinine 0.8. ASSESSMENT AND PLAN: 1. The patient's urinary tract infection has been treated for quite some time. I want to discontinue her Davidson catheter and Rocephin. We will keep ketoconazole on for a few more days. 2. Atrial fibrillation is stable. Her overall congestive failure picture that she presented with has resolved as well. She is relatively euvolemic, although the in's and out's for her are not really trustworthy. We will continue Eliquis therapy. 3. The patient remains profoundly weak and fatigued. I really do not see any signs of improvement in her recovery. The physical therapy notes are not promising, but we will continue to get her up in the chair and try for physical therapy. 4. The patient's overall nutritional status remains poor. Her oral intake is poor and she has been encouraged multiple times. She is aware that if she is not able to eat or take care of herself that she will never get out of the hospital. She will likely from this. 5. Disposition: At the present time, I am going to discontinue Davidson catheter and Rocephin. We will continue physical therapy. I am hopeful that we will move to the floor soon. I will discuss hospice with the family the next time that I am with them. I really do not see anything else that we could do within the framework that have set that would improve her chances for recovery. cc: Nito Crain MD
[2018-03-24] MEDS: FORTICAL NAS SCH (13:18)
[2018-03-24] MEDS: NIZORAL PO SCH (13:18)
[2018-03-25] MEDS: LASIX IV SCH (08:35)
[2018-03-25] MEDS: NIZORAL PO SCH (08:36)
[2018-03-25] MEDS: ELIQUIS PO SCH (08:36)
[2018-03-25] MEDS: BETAPACE PO SCH ×2 (08:36→21:06)
[2018-03-25] MEDS: FORTICAL NAS SCH (08:37)
[2018-03-25] MEDS: ASPIRIN PO SCH (08:37)
[2018-03-25] MEDS: ZANTAC PO SCH ×2 (08:46→21:06)
--- NOTE | 2018-03-25 09:01 | PROGRESS NOTE ---
DATE: 03/25/2018 SUBJECTIVE: The patient has already been gotten up into the chair. She is sitting in front of her breakfast. She is very awake, very alert, operating at baseline. She does not recognize me as her doctor, but recognizes me as familiar. There is no family present. OBJECTIVE: Vital Signs: 97.8, 80, 16, 111/59, 94% saturated on room air. General appearance: From a neuropsychiatric standpoint, the patient is operating at baseline. She is not as somnolent as yesterday. Neck exam: No JVD in the upright position. Lungs: Clear to auscultation bilaterally. Cardiovascular: Irregularly irregular with 2/6 systolic ejection murmur, unchanged from previous. Extremities: Show no peripheral edema. LABORATORIES: None were drawn. ASSESSMENT AND PLAN: 1. The patient's cardiovascular status is stable. I am going to discontinue her telemetry and transfer her to a floor bed. 2. I am going to discontinue the patient's Clinimix. She is strongly encouraged to eat. I do not hold great hope that she will do so. I will talk with the family about hospice at the next available opportunity. She is a do not resuscitate level 1. 3. The patient's urinary tract infection has been addressed. She has a couple more days of ketoconazole. She is off of antibiotics. 4. From a fluid balance standpoint, I think the patient will need a tiny bit of Lasix on a daily basis. I am going to put her on 10 mg oral daily and monitor fluid intake. cc: Nito Crain MD
[2018-03-25] MEDS: LASIX PO SCH (10:13)
[2018-03-25] MEDS: THERA M PLUS PO SCH (21:06)
[2018-03-26] MEDS: ZANTAC PO SCH ×2 (08:36→20:32)
[2018-03-26] MEDS: ELIQUIS PO SCH (08:36)
[2018-03-26] MEDS: THERA M PLUS PO SCH (08:36)
[2018-03-26] MEDS: ASPIRIN PO SCH (08:37)
[2018-03-26] MEDS: BETAPACE PO SCH ×2 (08:37→20:32)
[2018-03-26] MEDS: FORTICAL NAS SCH (08:42)
--- NOTE | 2018-03-26 11:00 | PROGRESS NOTE ---
DATE: 03/26/2018 SUBJECTIVE: The patient is asleep in the bed. I did not wake her. She is resting comfortably. There is no family present. OBJECTIVE: Vital signs: 97.8, 98, 18, 118/72, 91% saturated on room air. General: Fluid balance -844. P.o. intake is recorded as bite only. She did have a bowel movement yesterday. Respiratory: No tachypnea. Lungs are clear. Cardiovascular: Irregularly irregular with a 2/6 systolic ejection murmur. There is no peripheral edema. LABORATORIES: None were drawn. ASSESSMENT AND PLAN: 1. Cardiovascular status is stable. 2. The patient's p.o. intake is very poor. She has been encouraged, scolded, admonished in every means possible to encourage her to eat, but I think she just does not realize its necessity. Despite orders to feed with assistance, they basically set the tray up in front of her and that is about it. 3. Do not resuscitate level 1. 4. Urinary tract infection. Has been treated with antibiotics. Ketoconazole should be discontinued after today. 5. Fluid balance is roughly euvolemic over the past few days, but I really do not think that these ins and outs have been kept appropriately. I even had a discussion with the nurse on [facility] who agreed that the numbers did not add up correctly or at the very least had not been recorded correctly. 6. I will need to speak with the family as soon as practicable in regard to the future. I think she has very little rehab potential, although a rehabilitation stay would not be an extraordinary burden. Other possibilities would include hospice care at home or half-way placement with hospice. I think without the patient's cooperation in nutritional and medicinal treatment that her long-term prognosis is very poor. This has been discussed with the family on multiple occasions. cc: Nito Crain MD
[2018-03-26] MEDS: NIZORAL PO SCH (15:13)
[2018-03-27 05:52] LABS: BASO# 0.05 X1000 (0.0-0.2); BASO% 0.7 % (0.0-0.8); EOS# 0.16 X1000 (0.0-0.7); EOS% 2.2 % (0.0-10.0); HEMATOCRIT 40.4 % (37.0-47.0); HEMOGLOBIN 13.2 g/dL (12.0-16.0); LYMPH# 1.56 X1000 (1.2-3.4); LYMPH% 21.3 % (20.5-51.1); MCH 29.5 PG (27-31); MCHC 32.7 g/dL (33-37); MCV 90.4 FL (81-99); MONO# 1.01 X1000 (0.11-0.59); MONO% 13.8 % (1.7-9.3); MPV 11.4 FL (7.4-10.4); NEUT# 4.55 X1000 (1.4-6.5); PLT 165 X1000 (130-400); RBC 4.47 XMIL (4.2-5.4); RDW 19.2 % (11.5-14.5); WBC 7.33 X1000 (4.8-10.8)
[2018-03-27 06:42] LABS: ALB/GLOB RATIO 1.1; ALBUMIN 3.1 g/dL (3.5-5.0); CALCIUM 8.5 mg/dL (8.8-10.2); POTASSIUM 3.5 mmol/L (3.5-5.1); TOTAL BILIRUBIN 1.6 mg/dL (0.20-1.00); TOTAL PROTEIN 5.9 g/dL (6.3-8.3)
--- NOTE | 2018-03-27 08:59 | PROGRESS NOTE ---
DATE: 03/27/2018 SUBJECTIVE: The patient is sitting up in the chair. Her son states that yesterday, she was more attentive and alert. She was up in the chair twice and sat for a prolonged period. She is eating a little bit more, according to various reports. OBJECTIVE: Vital Signs: 97.3, 63, 16, 142/65. Fluid balance is inconclusive data. Physical Examination: General: The patient is alert and operating at baseline level of cognitive function. Lungs: Clear. Cardiovascular: Irregularly irregular with a 2/6 systolic ejection murmur, unchanged from previous. Laboratory: White cell count 7.3, hematocrit 40.4. BUN is 24, creatinine 1.0. Liver function tests were grossly normal. ASSESSMENT AND PLAN: 1. Cardiovascular status is stable. 2. Urinary tract infection has been treated. The patient should be off of ketoconazole for residual fungal infection at the present time. 3. The patient's nutritional status is still marginal, although her appetite has picked up slightly. She was again strongly encouraged for oral intake of fluids and caloric content. 4. Do Not Resuscitate level 1. 5. I spoke with the patient's son about placement. He would like to give rehab another try and then they can decide on placement following rehabilitation. cc: Nito Crain MD
[2018-03-27] MEDS: ZANTAC PO SCH ×2 (12:18→22:15)
[2018-03-27] MEDS: THERA M PLUS PO SCH (12:18)
[2018-03-27] MEDS: ELIQUIS PO SCH (12:18)
[2018-03-27] MEDS: ASPIRIN PO SCH (12:18)
[2018-03-27] MEDS: BETAPACE PO SCH ×2 (12:18→22:00)
[2018-03-27] MEDS ORDERED: CALAMINE LOTION TOP PRN (23:26)
[2018-03-28] MEDS: BETAPACE PO SCH ×2 (09:58→23:41)
[2018-03-28] MEDS: ZANTAC PO SCH ×3 (09:59→20:33)
[2018-03-28] MEDS: ASPIRIN PO SCH (09:59)
[2018-03-28] MEDS: ELIQUIS PO SCH (09:59)
[2018-03-28] MEDS: LASIX PO SCH (09:59)
[2018-03-28] MEDS: THERA M PLUS PO SCH (09:59)
--- NOTE | 2018-03-28 10:01 | PROGRESS NOTE ---
DATE: 03/28/2018 SUBJECTIVE: The patient is sitting up in bed. It appears that she has eaten 25% to 30% of her meal, which is more than she has done. She had a good day yesterday, according to her son, who was also at bedside. OBJECTIVE: Temperature 97.9, pulse 64, respirations 12, BP 112/67, 97% saturated on room air. PHYSICAL EXAMINATION: Because I have caught some type of upper respiratory illness, I did not approach the patient for direct physical exam. She was in no respiratory distress. She was alert, oriented, conversive and appropriately operating at her baseline level. I did feel her pulse on her wrist which was remarkably regular. There is no peripheral edema in the legs. LABORATORY: None were drawn. ASSESSMENT AND PLAN: 1. Cardiovascular status is stable. 2. Urinary tract infection and yeast infection have been treated, and she is no longer on therapy for this. Davidson catheter was removed. 3. Nutritional status is improved marginally. Hopefully, we can continue to stimulate her to eat, and she was encouraged to do so. 4. DO NOT RESUSCITATE LEVEL 1. 5. Some paperwork was signed by Social Work in regard to placement at [facility]. We will see when this comes to fruition. Other than that, we will stay the course and continue to follow labs and fluid status. cc: Nito Crain MD
[2018-03-28] MEDS: FORTICAL NAS SCH (10:14)
--- NOTE | 2018-03-29 08:49 | Diag Imaging Result Doc PS360 ---
EXAM: CHEST-PORTABLE 03/29/2018 HISTORY: rehab admit TECHNIQUE: AP portable at 0842 COMMENT: Compared to 03/17/2018 the pleural effusions and pulmonary edema which were present in the lung bases has improved. The heart size appears smaller. There is still some residual interstitial edema. IMPRESSION: Improved pulmonary edema, pleural effusions and cardiomegaly. Electronically signed by Samuel Peres 03/29/2018 8:46 AM
[2018-03-29] MEDS: FORTICAL NAS SCH ×2 (08:53→08:55)
[2018-03-29] MEDS: ASPIRIN PO SCH (08:54)
[2018-03-29] MEDS: LASIX PO SCH (08:54)
[2018-03-29] MEDS: ZANTAC PO SCH ×3 (08:54→20:24)
[2018-03-29] MEDS: ELIQUIS PO SCH (08:54)
[2018-03-29] MEDS: THERA M PLUS PO SCH (08:54)
[2018-03-29] MEDS: BETAPACE PO SCH ×2 (08:55→20:24)
--- NOTE | 2018-03-29 14:34 | PROGRESS NOTE ---
DATE: 03/29/2018 SUBJECTIVE: The patient is sitting up in bed. Her son is setting up breakfast for her. She is alert and operating at her baseline. She is starting to complain about various things, which is usually a sign of recovery for her. She has been eating reasonably well and somewhat better than in the past few days. Her liquid intake is still marginal, but seems adequate. OBJECTIVE: Vital signs: The patient is afebrile. Her vital signs are stable. Blood pressure is down a bit today. Heart: On physical exam, an irregularly irregular heart rhythm. Neuropsychiatric: From a neuro psych standpoint, the patient is at baseline. Lungs: Clear. ASSESSMENT AND PLAN: 1. Cardiovascular status is stable. 2. Urinary tract infection has been treated. 3. Overall weakness is still being addressed by physical therapy, and a rehabilitation bed has been obtained. 4. Chest x-ray today. 5. Do not resuscitate level 1. 6. Hopefully, we will get the patient out tomorrow as a bed is apparently going to be available at [facility] at that time. All of this has been discussed multiple times with the patient's son and in the presence of the patient. cc: Nito Crain MD
--- NOTE | 2018-03-30 09:19 | DISCHARGE SUMMARY ---
ADMISSION DATE: 03/15/2018 DISCHARGE DATE: 03/30/2018 DISCHARGE DIAGNOSES: 1. Acute congestive heart failure. 2. Chronic atrial fibrillation. 3. Aortic valve disease. 4. Urinary tract infection. 5. Yeast infection. 6. Acute kidney injury. 7. Generalized weakness. 8. Inadequate caloric intake. 9. Dementia. HOSPITAL COURSE: This 87-year-old, white female was readmitted from rehab, suffering from dehydration and acute kidney injury, and some signs and symptoms consistent with acute congestive heart failure. Upon admission, the patient was hypernatremic and we had a difficult time over the first several days of getting her fluid balance and electrolytes corrected. With gentle hydration and judicious application of Lasix, we finally achieved a steady sodium level and her acute kidney injury, which had initially shown a creatinine of 2.0, reverted back to a baseline of 0.8. The patient developed a UTI but apparently had been dosed with some antibiotics and nothing grew in the culture except for yeast. She was treated with Rocephin and ketoconazole until this was relieved. At that time, she also had a Davidson catheter and this was discontinued. Over the course of the remainder of her hospitalization, we had very great difficulty with getting her orientation from her baseline dementia improved enough to where she was willing and able to eat and drink appropriately. At the time of discharge, the patient's p.o. intake had improved but she requires almost constant supervision to continue drinking water and other liquids, and to eat her meals. She will require some type of supervision at every meal and constant prompts to increase her fluid intake. The patient's atrial fibrillation was initially out of control in her dehydrated state but once we corrected her fluid balance and electrolytes, the atrial fibrillation seemed to settle down into its usual rate control on sotalol. I had multiple discussions with the patient's family about end of life issues. We did make her Do Not Resuscitate level 1 at the time of admission. We also discussed nutrition and whether enteral nutrition would be appropriate. We decided that putting in a G-tube or some other type of feeding tube would not be to her advantage and would likely be very difficult to manage. I do not think that she had ever wanted that type of artificial support anyway. The patient's mental status for the first week or more of her hospitalization was very much in question. She was very groggy and although she could be awakened at times, she was more or less flaccid in the bed, both mentally and physically. Over the course of correcting her electrolytes and kidney injury, and stabilizing her overall condition, she became more alert in the mornings and was able to participate in physical therapy. She will need to have aggressive physical therapy at rehab in order to gain the ability to aid in transfer and maybe even take a few steps. If she is not able to do this within several weeks, she may have to be put into permanent alf placement and she will not be able to go home. At the present time, she lives by herself, although she does have some family support from the outside. The only way that she could go home would be with 24 hour sitters and constant attention by the family. I do not think this is feasible at the present time but may be after a few weeks of rehab, that might be an option. If and when the patient is able to get out of rehab, she can follow up with me in a few weeks after that and we can make sure that she is doing all right on an outpatient basis. cc: Nito Crain MD
[2018-03-30] MEDS: THERA M PLUS PO SCH (09:24)
[2018-03-30] MEDS: ELIQUIS PO SCH (09:25)
[2018-03-30] MEDS: BETAPACE PO SCH (09:25)
[2018-03-30] MEDS: ASPIRIN PO SCH (09:25)
[2018-03-30] MEDS: FORTICAL NAS SCH (09:26)
[2018-03-30] MEDS: ZANTAC PO SCH (09:27)
[2018-03-30 14:12] VITALS: BP 109/71
== END 2018-03-30 14:59 | DRG 682 ==
LOC: ED 20:16 → EDIPHOLD 03-15 02:02 → SUATTDRO 03-15 02:02 → 3S 03-15 07:45 → 4N 03-25 10:33
PROVIDERS: ADMIT Internal Medicine; ATTEND Internal Medicine
CPT/HCPCS: 51702; 71010; 71045; 74176; 76700; 80048; 80053; 81001; 82550; 82553; 83605; 83735; 83880; 84484; 85025; 85610; 85651; 85730; 86140; 87040; 87088; 93005; 93010; 94761; 96361; 96365; 96366; 96375; 96376; 97116; 97162; 97530; 99285; A9270; J0696; J1940; J2270; J2405; J3480; J7030; J7050; J7121

== ENCOUNTER 2018-05-02 20:47 | Inpatient (IN) ==
[2018-05-02] MEDS ORDERED: ZOFRAN IV ONE (21:24)
[2018-05-02] MEDS ORDERED: NS 1,000 ML IV ONE (21:24)
[2018-05-02 21:46] LABS: BASO# 0.02 X1000 (0.0-0.2); BASO% 0.2 % (0.0-0.8); EOS# 0.02 X1000 (0.0-0.7); EOS% 0.2 % (0.0-10.0); HEMATOCRIT 43.2 % (37.0-47.0); HEMOGLOBIN 14.8 g/dL (12.0-16.0); IMM GRAN# 0.03 X1000 (0.0-0.04); IMM GRAN% 0.3 % (0.0-0.5); LYMPH# 1.57 X1000 (1.2-3.4); LYMPH% 17.9 % (20.5-51.1); MCH 29.2 PG (27-31); MCHC 34.3 g/dL (33-37); MCV 85.4 FL (81-99); MONO# 0.89 X1000 (0.11-0.59); MONO% 10.1 % (1.7-9.3); MPV 11.5 FL (7.4-10.4); NEUT# 6.25 X1000 (1.4-6.5); NEUT% 71.3 % (42.2-75.2); PLT 263 X1000 (130-400); RBC 5.06 XMIL (4.2-5.4); RDW 18.4 % (11.5-14.5); WBC 8.78 X1000 (4.8-10.8)
--- NOTE | 2018-05-02 22:09 | Diag Imaging Result Doc PS360 ---
EXAM: CHEST-1 VIEW HISTORY: weakness TECHNIQUE: Portable chest COMPARISON: 03/29/2018 FINDINGS: The lungs are well expanded. The heart is enlarged. No consolidation. No pleural effusions identified. Mild central vascular prominence. There are small calcified hilar nodes. IMPRESSION: Cardiomegaly with mild central vascular prominence Electronically signed by Fransisco Levin 05/02/2018 10:07 PM
[2018-05-02 22:31] LABS: ESTIMATED GFR > 60
[2018-05-02 22:35] LABS: AGAP 21; ALB/GLOB RATIO 1.3; ALBUMIN 2.5 g/dL (3.5-5.0); ALKALINE PHOSPHATASE 90 U/L (32-104); BUN 21 mg/dL (8-22); CALCIUM 7.5 mg/dL (8.8-10.2); CHLORIDE 103 mmol/L (98-107); COSMO 280; CREATININE 0.8 mg/dL (0.5-0.9); GLUCOSE 81 mg/dL (70-104); GOT 22 U/L (10-30); GPT 10 U/L (10-36); POTASSIUM 3.2 mmol/L (3.5-5.1); SODIUM 139 mmol/L (136-145); TCO2 15 mmol/L (25-35); TOTAL PROTEIN 4.5 g/dL (6.3-8.3)
[2018-05-02 23:55] LABS: URINE SOURCE CLEAN CATCH
[2018-05-03 00:07] LABS: BILIRUBIN URINE SMALL (NEGATIVE); BLOOD URINE NEGATIVE (NEGATIVE); COLOR YELLOW; GLUCOSE URINE NEGATIVE (NEGATIVE); KETONE URINE 20 mg/dL (NEGATIVE); LEUKOCYTES URINE TRACE (NEGATIVE); NITRITE URINE NEGATIVE (NEGATIVE); PROTEIN URINE 70 mg/dL (NEGATIVE); SP GRAVITY URINE 1.026; TURBIDITY URINE HAZY (CLEAR); UROBILINOGEN URINE 3 mg/dL (NORMAL)
[2018-05-03 00:11] LABS: UR EPITHELIAL CELLS >10 /HPF (<10); URINE BACTERIA NEGATIVE /HPF; URINE RBC <10 /HPF (<10); URINE WBC <10 /HPF (<10)
[2018-05-03 00:25] LABS: URINE CASTS NONE SEEN; URINE CRYSTALS NONE SEEN; URINE SMALL ROUND CELLS NONE SEEN; URINE YEAST NONE SEEN
[2018-05-03] MEDS: NS 1,000 ML IV SCH ×2 (00:50→03:38)
[2018-05-03] MEDS ORDERED: KLOR-CON PO ONE (02:01)
[2018-05-03] MEDS ORDERED: TYLENOL PO PRN (03:20)
[2018-05-03] MEDS ORDERED: NS 1,000 ML ONE (03:25)
--- NOTE | 2018-05-03 06:20 | PROVIDER DOCUMENTATION ---
This chart was entered by Yecenia Carlos Scribe, acting as scribe for Edil Seth MD. HPI-General Adult - General Stated Complaint: weakness, poss. dehydration Time Seen by Provider: 05/02/18 21:29 Source: patient Allergies/Adverse Reactions: Patient Allergies Allergy/AdvReac Type Severity Reaction Status Date / Time oxycodone AdvReac Severe Unknown Verified 05/02/18 21:33 codeine AdvReac Mild drowsiness Verified 05/02/18 21:33 Home Medications: Home Medication List Medication Instructions Recorded Confirmed Last Taken Type Aspirin 81 mg PO DAILY 05/14/13 05/02/18 05/02/18 History Multivitamin [Multivitamins] 1 each PO DAILY 08/11/14 05/02/18 05/02/18 History Calcitonin [Fortical] 1 spray JAMES DAILY 03/14/18 05/02/18 05/02/18 History Sotalol [Betapace] 80 mg PO BID 03/14/18 05/02/18 05/02/18 History Apixaban [Eliquis] 2.5 mg PO BID 05/02/18 05/02/18 05/02/18 History - History of Present Illness -Gen Adult Nature of Presenting Problems: 87 yof presents to ED c/o of generalized weakness, nausea, poor appetite. Pt has HX of AFIB & HTN. Pt denies fever, vomiting, abdominal pain. Review of Systems - Adult - REVIEW OF SYSTEMS - ADULT Constitutional: denies: chills, fever Eyes: reports: no symptoms reported Ears, Nose, Mouth & Throat: reports: no symptoms reported Cardiovascular: reports: other (HX of AFIB and HTN) Respiratory: reports: no symptoms reported Gastrointestinal: reports: nausea, poor appetite Genitourinary: reports: no symptoms reported Musculoskeletal: reports: no symptoms reported Integumentary: reports: no symptoms reported Neurological: reports: no symptoms reported Psychiatric: reports: no symptoms reported Endocrine: reports: no symptoms reported Hematologic/Lymphatic: reports: no symptoms reported Allergic/Immunologic: reports: no symptoms reported All Other Systems: Reviewed and Negative Past History - Adult - PAST MEDICAL HISTORY-ADULT Review of Records: reports: Nursing Assessment Review, Medications Reviewed Major Childhood Illnesses: reports: denies history Cardiovascular: reports: cardiac disease, HTN Respiratory: reports: denies history Gastrointestinal: reports: denies history Obstetrical/Gynecological: reports: denies history Genitourinary: reports: denies history Musculoskeletal: reports: osteoporosis Neurological: reports: denies history Endocrine/Immune: reports: thyroid disorder (benign thyroid nodule) Other Conditions: reports: denies history - PRIOR SURGERIES/PROCEDURES Surgical/Procedure History: reports: orthopedic (extremity), back/neck - IMMUNIZATION STATUS Childhood Immunizations: See Nurse Assessment Flu Vaccine: See Nurse Assessment - FAMILY HISTORY Family History: reviewed, not pertinent Physical Exam-General - PHYSICAL EXAM-ADULT Initial Vital Signs Reviewed: Yes - CONSTITUTIONAL General Appearance: appears well, alert, no apparent distress - EYES Eyes: PERRL/EOMI, pink conjunctivae - RESPIRATORY Respiratory: chest non-tender, lungs clear, normal breath sounds - CARDIOVASCULAR Cardiovascular: normal peripheral pulses, regular rate, rhythm (AFIB with regular rate) - MUSCULOSKELETAL Extremity: normal range of motion, non-tender, no pedal edema - SKIN Integumentary: normal color, normal turgor, warm/dry - NEUROLOGIC Neurologic: background check coordinator II-XII nml as tested, grossly normal, no motor/sensory deficits - PSYCHIATRIC Psych/Mental Status: normal mood/affect, normal thought content, normal thought process, oriented x 3 Progress - PLAN OF CARE/RESULTS Progress/Plan/Lab Results: Laboratory Results - last 24 hr 05/02/18 21:21 POC Glucose 94 Orders Category Date Time Status cxr [CHEST-1 VIEW] [RAD] Stat Exams 05/02/18 21:22 Ordered BLOOD CULTURE [BLDCUL] Stat Lab 05/02/18 21:23 Uncollected BNP [PRO B-NATRIURETIC PEPTIDE] Stat Lab 05/02/18 21:21 Uncollected CBC WITH ELECTRONIC DIFF [HEME] Stat Lab 05/02/18 21:21 Uncollected CMP [COMPREHENSIVE METABOLIC PANEL] [CHEM] Stat Lab 05/02/18 21:21 Uncollected LACTATE, PLASMA [CHEM] Stat Lab 05/02/18 21:23 Uncollected TROPONIN T Stat Lab 05/02/18 21:21 Uncollected UA [URINALYSIS] [URINALYSIS] Stat Lab 05/02/18 21:22 Uncollected URINE CULTURE [RM] Stat Lab 05/02/18 21:22 Uncollected 0.9% Sodium Chloride Inj [Ns] 1,000 ml Med 05/02/18 21:24 Active IV 999 mls/hr Ondansetron [Zofran] Med 05/02/18 21:24 Discontinued 8 mg IV NOW ONE EKG [EKG] Stat Ther 05/02/18 21:23 Ordered Result Diagrams: 05/02/18 21:25 05/02/18 21:25 - EKG 1 Time of EKG reading by physician:: 21:15 EKG Read and Signed by:: Edil Seth EKG Interpretation (*Must complete 3 of following elements*): Abnormal Rate: 106 Rhythm: AFIB QRS: PVC's ST Wave: non-specific ST changes - XRAY 1 XRAY: Bilateral XRAY Study: Chest (IMPRESSION: Cardiomegaly with mild central vascular prominence Electronically signed by Fransisco Levin 05/02/2018 10:07 PM) Impression: Abnormal Departure - Departure Date of Disposition Decision: 05/03/18 Time of Disposition Decision: 01:00 DIAGNOSIS: Hypotension Qualifiers: Hypotension type: unspecified hypotension type Qualified Code(s): I95.9 - Hypotension, unspecified Disposition: ADMITTED INPATIENT 09 Certified Medical Emergency: Emergent Condition: Stable - Critical Care Note This patient required my direct & personal management of CC.: No Attestation - Physician/ KALINA Attestation Patient care was provided by Advanced Practice Provider:: No The physician spent face to face time with patient:: Yes Advanced Practice Provider documentation review:: Supervising physician onsite and consulted in the evaluation and care of this patient. The physician did have a face to face encounter with the patient. This chart was documented by the indicated scribe, (Yecenia Carlos Scribe) and accurately reflects the services I performed and decisions made by me, Edil Seth MD, as attested by the provider's signature.
--- NOTE | 2018-05-03 06:53 | EKG Report ---
Test Performed on : 05/02/2018 9:15:36 PM Test Reason : weakness Blood Pressure : / mmHG Vent. Rate : 106 BPM Atrial Rate : 147 BPM P-R Int : 000 ms QRS Dur : 086 ms QT Int : 306 ms P-R-T Axes : 000 -03 -47 degrees QTc Int : 406 ms Atrial fibrillation. with rapid ventricular response. with premature ventricular or aberrantly conduc pramod complexes. Nonspecific T wave abnormality Abnormal ECG When compared with ECG of 20-MAR-2018 10:05, Atrial fibrillation. has replaced Sinus rhythm. Vent. rate has increased BY 42 BPM Nonspecific T wave abnormality now evident in Inferior leads Nonspecific T wave abnormality has replaced inverted T waves in Anterior leads Nonspecific T wave abnormality now evident in Lateral leads QT has shortened Unconfirmed Result
--- NOTE | 2018-05-03 07:45 | HISTORY AND PHYSICAL ---
CHIEF COMPLAINT: Patient has no complaint. No family is at the bedside. Per the ER she was brought in for increased confusion and weakness. HISTORY OF PRESENT ILLNESS: Ms. Mcfarlane is an 87-year-old patient who sees Dr. Nito Crain outpatient. She has a history of hypertension, hyperlipidemia, chronic atrial fibrillation, on Eliquis and Sotalol, and dementia who apparently came into the emergency room for increased confusion and weakness. There is no family at the bedside. The patient has dementia. She is oriented only to person and place, disoriented to time and situation. She is unable to tell me any complaints. She states that her daughter is down from [place]. She normally lives by herself and she believes that her daughter must have brought her in. Her chest x-ray in the emergency room shows cardiomegaly with mild central vascular prominence. She was noted to be mildly hypotensive. Her blood pressure dropped into the 70s systolic. She was given a liter bolus in the emergency room. Now her blood pressure is trending around 90 systolic. She will be admitted to the ICU for observation. Will continue normal saline at this time. PAST MEDICAL HISTORY: 1. Hypertension. 2. Hyperlipidemia. 3. Chronic atrial fibrillation. 4. Dementia. 5. Lumbar compression fractures. PREVIOUS SURGICAL HISTORY: 1. Right knee surgery. 2. Benign thyroid nodule removal. ALLERGIES: Codeine and oxycodone. SOCIAL HISTORY: She and lives alone. Has drank scotch daily but states she has not had a drink since she cannot remember when. No history of smoking. No illicit drug use. FAMILY HISTORY: Unable to be reviewed. I think her mother from a myocardial infarction. HOME MEDICATIONS: 1. Eliquis 2.5 mg p.o. b.i.d. 2. Sotalol 80 mg p.o. b.i.d. 3. Calcitonin one spray nasally daily. 4. Multivitamin. 5. 81 mg aspirin p.o. daily. REVIEW OF SYSTEMS: Fourteen point review of systems conducted with the patient. She denies complaint. Pertinent positives for admission are listed above in the HPI. All other systems were reviewed and found to be negative. PHYSICAL EXAMINATION: VITAL SIGNS: Temperature 97.9, pulse 77, respirations 16, blood pressure 101/61, oxygen saturation 96% on room air. GENERAL: Pleasantly confused 87-year-old female lying in the ER stretcher, is oriented to person, place, disoriented to time and situation. No family at bedtime. she is in no acute distress. HEENT: Head is atraumatic, normocephalic. Pupils are equal, round, reactive to light. Extraocular eye movement is intact. Sclerae are anicteric. Conjunctiva is pink. Oral mucosa is moist. NECK: Supple. No JVD. No thyromegaly. Trachea is midline. No cervical lymphadenopathy. CARDIAC: Irregularly irregular. No murmurs, gallops or rubs. LUNGS: Decreased bilaterally but otherwise clear. No rhonchi, wheezes, rales. Symmetric rise and fall with respirations. ABDOMEN: Soft, nondistended, nontender. Bowel sounds present in all 4 quadrants, normoactive. No pulsatile mass. No organomegaly. EXTREMITIES: No clubbing, cyanosis. Trace edema bilateral lower extremities. One-plus pedal pulses bilaterally. NEUROLOGICAL: She is awake and alert. Oriented to person and place, disoriented to time and situation. No focal motor deficits. Otherwise nonfocal examination. GENITOURINARY: No bladder distention. Patient voids. Otherwise deferred. SKIN: No tenting. Warm, dry and intact. No acute lesions or rash. DIAGNOSTIC DATA: Chest x-ray shows cardiomegaly with mild increased pulmonary vascular congestion. LABORATORY DATA: CBC within normal limits. Chemistry within normal limits other than potassium of 3.2, chloride of 15. ProBNP elevated at 7170. This appears to be around her baseline. Urine unremarkable. It was a dirty urine sample with greater than 10 epithelial cells. ASSESSMENT AND PLAN: 1. Hypotension. This may be related to decreased fluid volume intake. She was given a liter bolus in the emergency room. Will continue normal saline at 50 mL an hour overnight. Will place patient is ICU overnight for monitoring. 2. Atrial fibrillation, chronic. Will continue her Sotalol and blood thinner. 3. Hypokalemia. Will give 40 mEq of potassium and recheck. 4. Dementia. I believe the patient appears to be at her baseline, however, from what the ER was telling us, the family said that she had increased confusion. Further recommendations per patient clinical course. Dictated by MALIK Ledezma for Lucy Garza MD cc: MD Paul Corbin CRNP Olakunle P. Akinsoto, MD
[2018-05-03] MEDS ORDERED: BETAPACE PO SCH (09:00)
[2018-05-03] MEDS: THERA M PLUS PO SCH (09:56)
[2018-05-03] MEDS: ELIQUIS PO SCH ×2 (09:56→21:41)
[2018-05-03] MEDS: ASPIRIN PO SCH (09:56)
[2018-05-03] MEDS: FORTICAL NAS SCH (10:23)
[2018-05-03] MEDS ORDERED: NS 250 ML IV ONE (13:00)
[2018-05-03] MEDS ORDERED: LANOXIN PO ONE (13:03)
--- NOTE | 2018-05-03 13:23 | PROGRESS NOTE ---
DATE: 05/03/2018 SUBJECTIVE: The patient was remarkably interactive and appropriate during my interview. She seemed fairly well oriented, was able to answer questions appropriately. She was admonished strongly again to eat and drink properly which she more less dismissed as a suggestion. OBJECTIVE: Vital signs: Pulse rate was 98, blood pressure 96/67 at the time of my examination. Cardiac: On physical exam, heart is irregularly irregular with 2/6 systolic ejection murmur. Lungs: Are clear. ENT: Oral mucosa is normal. Neurologic: The patient is alert and seems reasonably oriented, and is operating at baseline mental capacity. LABORATORY: There is no laboratory drawn today. I did review her labs from previous admission. ASSESSMENT AND PLAN: 1. Patient's high-protein hypotension is likely due to decreased fluid volume intake. She has been given a slow drip of normal saline to help raise this and seems to have worked to a certain degree. We will continue this and monitor fluid status so that she does not become overloaded, which she has had a propensity to do in the past. 2. Patient has a chronic atrial fibrillation. She is on her sotalol and her Eliquis. I will have to do some research to see whether sotalol may be impacting her blood pressure as well. 3. The patient's dementia is at baseline. cc: Nito Crain MD
[2018-05-03] MEDS: BETAPACE PO SCH (21:40)
[2018-05-04] MEDS ORDERED: NS 1,000 ML ONE (00:49)
[2018-05-04 06:32] LABS: BASO# 0.01 X1000 (0.0-0.2); BASO% 0.1 % (0.0-0.8); EOS# 0.01 X1000 (0.0-0.7); EOS% 0.1 % (0.0-10.0); HEMATOCRIT 42.5 % (37.0-47.0); HEMOGLOBIN 14.1 g/dL (12.0-16.0); IMM GRAN# 0.04 X1000 (0.0-0.04); IMM GRAN% 0.4 % (0.0-0.5); LYMPH# 2.01 X1000 (1.2-3.4); LYMPH% 18.6 % (20.5-51.1); MCH 29.1 PG (27-31); MCHC 33.2 g/dL (33-37); MCV 87.8 FL (81-99); MONO# 1.11 X1000 (0.11-0.59); MONO% 10.3 % (1.7-9.3); MPV 11.4 FL (7.4-10.4); NEUT# 7.63 X1000 (1.4-6.5); NEUT% 70.5 % (42.2-75.2); PLT 236 X1000 (130-400); RBC 4.84 XMIL (4.2-5.4); RDW 19.1 % (11.5-14.5); WBC 10.81 X1000 (4.8-10.8)
[2018-05-04 07:02] LABS: CALCIUM 7.3 mg/dL (8.8-10.2); CREATININE 1.1 mg/dL (0.5-0.9); POTASSIUM 3.3 mmol/L (3.5-5.1)
--- NOTE | 2018-05-04 07:19 | EKG Report ---
Test Performed on : 05/04/2018 06:51:48 AM Test Reason : chest pain Blood Pressure : / mmHG Vent. Rate : 096 BPM Atrial Rate : 088 BPM P-R Int : 000 ms QRS Dur : 076 ms QT Int : 318 ms P-R-T Axes : 000 035 -34 degrees QTc Int : 401 ms Atrial fibrillation. with premature ventricular or aberrantly conducted complexes. Nonspecific T wave abnormality Abnormal ECG When compared with ECG of 02-MAY-2018 21:15, (Unconfirmed) No significant change was found Confirmed by Breann ECHEVERRIA, Nito Griffith ([id number]) on 05/05/2018 9:20:13 AM
[2018-05-04] MEDS ORDERED: KLOR-CON PO ONE (08:07)
[2018-05-04] MEDS: ASPIRIN PO SCH (10:20)
[2018-05-04] MEDS: ELIQUIS PO SCH ×3 (10:21→21:26)
[2018-05-04] MEDS: THERA M PLUS PO SCH (10:21)
[2018-05-04] MEDS: PROAMATINE PO SCH ×3 (10:22→17:06)
[2018-05-04] MEDS: LANOXIN PO SCH (10:23)
[2018-05-04] MEDS: FORTICAL NAS SCH (10:24)
[2018-05-04] MEDS: EFFEXOR XR PO SCH (10:25)
[2018-05-04] MEDS: BETAPACE PO SCH ×3 (12:54→21:25)
[2018-05-04] MEDS ORDERED: NS 500 ML IV ONE (13:07)
[2018-05-04] MEDS ORDERED: LEVAQUIN PO ONE (13:08)
--- NOTE | 2018-05-04 15:11 | PROGRESS NOTE ---
DATE: 05/04/2018 SUBJECTIVE: The patient is still down in the holding area of the emergency room. I saw her this morning. I later got some new lab results after returning to the office. The patient has been assigned a CICU bed. The patient had no complaints. Her p.o. intake, according to the very sparsely kept records of her ins and outs, shows that she was not eating terribly well. She was again admonished to do so. OBJECTIVE: Vital signs: Temperature was 97.9, pulse rate is 94, blood pressure is 97/59, 93% saturation on 2 L nasal cannula. General: The patient is alert and operating at best baseline function, as far as cognition. Cardiovascular: Reveals an irregularly irregular rhythm with 2/6 systolic ejection murmurs. Lungs: Clear to auscultation. There is no peripheral edema. LABORATORY DATA: White cell count was 10.8, hematocrit 42.5. Carbon dioxide is 16, creatinine 1.1, potassium 3.3, blood sugar 79. TSH was 3.3. Microbiology: The patient's urine culture grew back gram-positive cocci and gram-negative lisa, despite the fact that the urinalysis showed no real signs of infection. We do not have identification on this, but was listed as mixed tahir, and in both of these entities grew out greater than 100,000 colony forming units per mL. ASSESSMENT AND PLAN: 1. The patient's hypotension is still, in my opinion, likely due to decreased fluid volume intake as well as medication effects. I supposed given her positive urine cultures that she could have some form of metabolic derangement as a result of infection, but she certainly does not appear septic otherwise and from a mental status standpoint she is doing about as well as she has done over the last few hospitalizations. I am going to treat her with some antibiotics for the urinary tract infection that has shown up on culture. In addition, I am going to start her on midodrine and I have lowered the dose of her sotalol and added digoxin for rate control. Hopefully, this combination will result in rate controlled chronic atrial fibrillation without the hypotension. 2. The patient was again strongly encouraged to eat and drink appropriately. 3. The patient's chronic atrial fibrillation appears to be rate controlled at present. 4. The patient's dementia is at or above baseline. cc: Nito Crain MD
[2018-05-04] MEDS: ZOFRAN IV PRN ×2 (17:06→21:13)
[2018-05-04] MEDS: MACROBID PO SCH ×2 (21:13→21:26)
[2018-05-05] MEDS: ZOFRAN IV PRN ×2 (02:23→09:45)
[2018-05-05] MEDS ORDERED: LANOXIN IV ONE (03:42)
[2018-05-05 06:13] LABS: BASO# 0.01 X1000 (0.0-0.2); BASO% 0.1 % (0.0-0.8); HEMATOCRIT 48.7 % (37.0-47.0); HEMOGLOBIN 15.3 g/dL (12.0-16.0); LYMPH# 1.52 X1000 (1.2-3.4); LYMPH% 12.3 % (20.5-51.1); MCH 29.7 PG (27-31); MCHC 31.4 g/dL (33-37); MCV 94.4 FL (81-99); MONO# 0.75 X1000 (0.11-0.59); MONO% 6.1 % (1.7-9.3); NEUT# 10.08 X1000 (1.4-6.5); NEUT% 81.5 % (42.2-75.2); PLT 233 X1000 (130-400); RBC 5.16 XMIL (4.2-5.4); RDW 20.5 % (11.5-14.5); WBC 12.36 X1000 (4.8-10.8)
[2018-05-05] MEDS: PROAMATINE PO SCH ×3 (08:38→21:42)
[2018-05-05] MEDS: LANOXIN PO SCH (08:38)
[2018-05-05] MEDS: THERA M PLUS PO SCH (08:38)
[2018-05-05] MEDS: MACROBID PO SCH ×2 (08:38→21:42)
[2018-05-05] MEDS: ELIQUIS PO SCH (08:38)
[2018-05-05] MEDS: ASPIRIN PO SCH (08:38)
[2018-05-05] MEDS: BETAPACE PO SCH (08:40)
[2018-05-05] MEDS: EFFEXOR XR PO SCH (08:43)
[2018-05-05] MEDS ORDERED: NS 500 ML IV SCH (09:00)
--- NOTE | 2018-05-05 09:22 | PROGRESS NOTE ---
DATE: 05/05/2018 SUBJECTIVE: The patient recognized me, when I came in and was alert and interactive at her baseline level. She is actually functioning somewhat above that compared to previous hospitalizations. Overnight, I received a call in the early hours of the morning, stating that the patient was nauseated and/or throwing up, and that her heart rate was 140. It was revealed to me at that time that the patient did not receive any sotalol yesterday. I have asked for an incident report to be filed in regard to appropriate administration of medications and proper notification of the attending physician. Today, the patient's son reveals that for the past 3 weeks, the patient has had somewhat uncontrollable diarrhea. We also discussed positive urine cultures. OBJECTIVE: Vital Signs: 97.4, 101, 16, 92/58, 100% saturated on 2 L nasal cannula. Heart: The patient is in AFib at approximately 100 beats per minute. There is a 2 to 3 over systolic ejection murmur, consistent with previous exams. Lungs: Clear. Extremities: Show no evidence of edema. LABORATORY: White cell count is 12.36, hematocrit is 48.7. There was no BMP run today for somewhat inexplicable reasons. ASSESSMENT AND PLAN: 1. The patient's hypotension is still at issue. I have asked cardiology to see her today and spoke with Dr. Robb Rogers in regard to the effect of sotalol on her blood pressure. She clearly needs some form of heart rate control, and I will leave it to the pencil inspector to help us make the decision on appropriate treatment going down the line. Yesterday, I reduced her sotalol dose to 40 mg twice daily and added digoxin for rate control. It is pretty clear that she did not receive any of the sotalol, although, I know she got at least 1 dose of digoxin. 2. I plan to give her an additional 500 mL bolus today, as her in's and out's and the relative hemoconcentration on her CBC would suggest that she is still behind on fluids. 3. I am not sure that the midodrine has shown any benefit thus far and if the cardiology wants to discontinue that medication. I have no objection. I will leave the venlafaxine on board, as the norepinephrine levels which are produced may be helpful for maintaining blood pressure, and she could likely afford the positive affects on her mental status as well. 4. The patient was again strongly encouraged to eat and drink. 5. Chronic atrial fibrillation. See above. 6. The patient's dementia is at or above baseline. 7. The patient continues to show considerable frailty and will need further inpatient hospital management to get her back to a point, where she can hopefully return home. 8. The patient has a history of alcoholism, and his son revealed to me today that he found a bottle of scotch at her house. She has not had alcohol there in some time. I am not sure if she has been imbibing on a regular basis. She has been told repeatedly in the past that the appropriate amount of alcohol for her, given her ongoing heart difficulty, is 0. cc: Nito Crain MD
[2018-05-05 09:33] LABS: AGAP 23; BUN 26 mg/dL (8-22); CHLORIDE 104 mmol/L (98-107); COSMO 281; CREATININE 1.4 mg/dL (0.5-0.9); GLUCOSE 105 mg/dL (70-104); POTASSIUM 4.6 mmol/L (3.5-5.1); SODIUM 138 mmol/L (136-145); TCO2 11 mmol/L (25-35)
[2018-05-05] MEDS ORDERED: LOPRESSOR IV PRN (10:03)
[2018-05-05] MEDS: LOPRESSOR PO SCH ×2 (13:24→21:43)
[2018-05-05] MEDS: FLAGYL PO SCH ×2 (13:24→21:42)
[2018-05-05] MEDS ORDERED: PRILOSEC PO ONE (13:27)
[2018-05-05] MEDS: FORTICAL NAS SCH (19:19)
--- NOTE | 2018-05-05 21:16 | CARDIOLOGY CONSULTATION ---
DATE: 05/05/2018 CHIEF COMPLAINT ON PRESENTATION: Apparently brought in for increased confusion and weakness. HISTORY OF PRESENT ILLNESS: Ms Mcfarlane is an 87-year-old patient of Dr. Quintero. However she has not seen him in around 5 years. She carries a diagnosis of significant dementia and chronic atrial fibrillation. We have been brought in to evaluate the patient secondary to relative hypotension as well as tachycardia. The patient was not oriented to year or month. She was resistant to answering any questions. She was pleasant. She was not combative. She had no complaints of pain or shortness of breath. PAST MEDICAL HISTORY: 1. Significant for hypertension. 2. Hyperlipidemia. 3. Chronic atrial fibrillation maintained on low-dose Eliquis. 4. Mitral regurgitation. Last echocardiogram was in 2016 demonstrated moderate to severe eccentric mitral regurgitation with a normal ejection fraction. SOCIAL HISTORY: , apparently lives alone. This is from chart review. The patient is not able to provide any. FAMILY HISTORY/REVIEW OF SYSTEMS: Unable to be obtained secondary to the patient's dementia. PHYSICAL EXAMINATION: She is afebrile. Her heart rates most recent was 89 but she appears to be running in the low 100s predominantly over the last several checks.General: She is in no acute distress. She is pleasant. HEENT: Oropharynx is moist. Poor dentition. Eye examination shows pink conjunctivae, white sclerae. Neck: Examination shows no obvious thyromegaly or thyroid tenderness. Cardiovascular: She sounds to be in a tachycardic and irregular rhythm. She has a 2 to 3/6 holosystolic murmur heard diffusely throughout the precordium. She has no lower extremity edema. She has warm and well perfused lower extremities. Chest: Sounds relatively clear. She has no increased work of breathing. Abdomen: Soft, nontender, nondistended. She has no obvious organomegaly. Skin: Warm and dry throughout without any rashes. Neurological: She seems to be moving all extremities well and appears nonfocal. Psychiatric: She is alert, attempts to answer questions, however she is not oriented. DATA: She had an EKG performed on the at 2115 that shows atrial fibrillation, rate of 106 beats per minute. Subsequent EKG performed on the at 6:51 shows atrial fibrillation at 96 beats per minute. She had a chest x-ray performed on the demonstrating cardiomegaly with mild central vascular prominence. Her lab data shows a white count of 12.3, hematocrit 48, platelet count is 233,000. Her sodium is 138, potassium 4.6, BUN 26, creatinine is 1.4. That is up from a presenting creatinine of 0.8. ASSESSMENT: Ms. Mcfarlane is a 87-year-old female with a significant level of dementia who presented with chronic atrial fibrillation and relative hypotension. PLAN: I agree with a slight fluid challenge in the patient. We have stopped her sotalol as she seems to be a patient with chronic atrial fibrillation as opposed to paroxysmal. I believe we could consider restarting the Eliquis but at this point given her significant dementia, it would be reasonable to discuss this with the family. We have initiated metoprolol at 12.5 q.6 hours as well as IV Lopressor for p.r.n. heart rates above 120. I will order an echocardiogram to reevaluate her valvular heart disease as she did have a significant burden of this previously. We will try to achieve rate control in the 100s with hopefully tolerating this from a hemodynamic standpoint. She does not seem to be an appropriate candidate for any sort of interventions to her mitral valve considering her significant level of dementia. cc: MD Nito Kearney MD
[2018-05-06] MEDS: LOPRESSOR PO SCH ×3 (01:36→15:40)
[2018-05-06 06:04] LABS: HEMATOCRIT 49.2 % (37.0-47.0); HEMOGLOBIN 15.5 g/dL (12.0-16.0); LYMPH# 2.96 X1000 (1.2-3.4); MCH 29.2 PG (27-31); MCHC 31.5 g/dL (33-37); MCV 92.8 FL (81-99); MONO# 1.99 X1000 (0.11-0.59); MPV 10.9 FL (7.4-10.4); PLT 281 X1000 (130-400); RDW 20.6 % (11.5-14.5); WBC 33.05 X1000 (4.8-10.8)
[2018-05-06] MEDS ORDERED: NS 500 ML IV ONE (06:44)
[2018-05-06 06:45] LABS: LYMPHS 10 % (21-51); MONO 8 % (1-9); SEGS 82 % (42-75)
[2018-05-06 06:53] LABS: CALCIUM 8.4 mg/dL (8.8-10.2); CREATININE 2.1 mg/dL (0.5-0.9)
[2018-05-06 06:59] LABS: POTASSIUM 5.3 mmol/L (3.5-5.1)
[2018-05-06] MEDS ORDERED: PRILOSEC PO SCH (07:00)
[2018-05-06] MEDS ORDERED: NS 1,000 ML IV ONE (08:38)
[2018-05-06 09:34] LABS: URINE SOURCE CATH
[2018-05-06 09:39] LABS: BILIRUBIN URINE SMALL (NEGATIVE); BLOOD URINE NEGATIVE (NEGATIVE); COLOR YELLOW; GLUCOSE URINE NEGATIVE (NEGATIVE); KETONE URINE TRACE mg/dL (NEGATIVE); LEUKOCYTES URINE NEGATIVE (NEGATIVE); NITRITE URINE NEGATIVE (NEGATIVE); PH URINE 5.5; PROTEIN URINE 50 mg/dL (NEGATIVE); SP GRAVITY URINE 1.017; TURBIDITY URINE HAZY (CLEAR); UROBILINOGEN URINE NORMAL (NORMAL)
[2018-05-06 09:42] LABS: UR EPITHELIAL CELLS <10 /HPF (<10); URINE BACTERIA NEGATIVE /HPF; URINE RBC <10 /HPF (<10); URINE WBC <10 /HPF (<10)
[2018-05-06 10:18] LABS: URINE CASTS NONE SEEN; URINE YEAST NONE SEEN
[2018-05-06 10:19] LABS: URINE CRYSTALS NONE SEEN
--- NOTE | 2018-05-06 11:00 | Diag Imaging Result Doc PS360 ---
CHEST-PORTABLE - 05/06/2018 INDICATION: wbc 33K COMPARISON: 05/02/2018 FINDINGS: There is worsening cardiomegaly and pulmonary vascular congestion. There is worsening central pulmonary edema. There are small bilateral pleural effusions. IMPRESSION: Congestive heart failure. Electronically signed by Rakesh Garcia 05/06/2018 10:57 AM
[2018-05-06] MEDS: ZOSYN 2.25 GM in NS 50 ML IV SCH ×2 (11:23→17:02)
--- NOTE | 2018-05-06 11:24 | PROGRESS NOTE ---
DATE: 05/06/2018 SUBJECTIVE: When I came in the room this morning, her son was there. The patient had completely removed her clothes and was basically unresponsive, mumbling incoherently. She did not respond to any appropriate stimuli. Her laboratories were taken with significant downturn overnight as well for inexplicable reasons. OBJECTIVE: Vital signs: The patient has been afebrile with a T-max of 98.3 degrees, pulse rate is 65, respiratory 18, blood pressure 103/83, 92% saturated on 2 L nasal cannula. General: On physical exam, as stated earlier the patient is mumbling incoherently, pulling at her covers. She has removed her gown. Lungs: Clear to auscultation in all strong. Cardiovascular: Reveals an irregularly irregular rhythm at approximately 80 beats per minute at the time of my examination. There is a 2/6 systolic ejection murmur which is unchanged from previously. Extremities: There is no peripheral edema. LABORATORY: White cell count 33,000, hematocrit is 49.2, bicarbonate has plummeted to 6, BUN is 32, creatinine 2.1. ASSESSMENT AND PLAN: 1. The patient's hypotension is inexplicably slightly improved with medication changes. Dr. Rogers's consultation was thoroughly read and discussed with the family. We are achieving rate control it would appear and blood pressure is stable. 2. The patient was taken off of Eliquis because of heme-positive stools and due to fall risk. 3. The patient has blossomed into full acute renal failure for inexplicable reasons. Her bicarbonate has plummeted. I have to believe this has something to do with fluid status. Ins and out's were not kept accurately. We will put in a Davidson catheter. I am going to give her 1000 mL bolus and we may have to drip some fluids in continuously as well. 4. I have discontinued the midodrine and venlafaxine in case this was in someway affecting her mental status and other new issues. 5. The patient was refusing p.o. intake last night, refused medications. I do not think she is in any state today to take anything by mouth. 6. The patient's dementia, which we have shown to be really above her operating baseline has now sunk to full scale delirium. Again, this is inexplicable. 7. The patient's history of alcoholism is noted. There was alcohol at her house, but it would seem odd that nearly a week into her hospitalization she would start to have withdrawal symptoms like this. We will continue to monitor and provide all support. 8. Do not resuscitate level 1. cc: Nito Crain MD
[2018-05-06] MEDS: FLAGYL PO SCH (12:46)
[2018-05-06] MEDS: FORTICAL NAS SCH (12:46)
[2018-05-06] MEDS: THERA M PLUS PO SCH (12:46)
[2018-05-06 15:50] VITALS: BP 60/41
[2018-05-06] MEDS ORDERED: ATIVAN IV ONE (16:05)
[2018-05-06] MEDS ORDERED: DOPAMINE 400 MG/D5W 400 MG/500 ML IV.SOLN IV SCH (16:15)
[2018-05-06] MEDS ORDERED: DOPAMINE 800 MG/D5W 800 MG/500 ML IV.SOLN IV SCH (16:30)
--- NOTE | 2018-05-07 12:21 | ECHO REPORT ---
ORDER DATE: 05/05/2018 ECHOCARDIOGRAPHIC MEASUREMENTS: 1. Interventricular septum 1.2. 2. Left ventricular posterior wall 1.1. 3. Diastolic diameter 3.4. 4. Left atrium 4.4. 5. Aorta 3.3. SUMMARY OF 2-DIMENSIONAL IMAGIN. Aortic valve leaflets were calcified, trileaflet, opening normally. Pulmonic valve was normal. Tricuspid valve was normal. There was mild pulmonary regurgitation. There was biatrial enlargement. Mitral valve leaflets were mildly thickened, opening normally. There was moderate to severe mitral annular calcification. Normal left ventricular cavity size. Mild left ventricular hypertrophy. Estimated ejection fraction of 50-55%. There is diastolic dysfunction. 2. There is moderate eccentric mitral regurgitation. There is severe tricuspid regurgitation. Peak velocity across the tricuspid valve was 3.4 m/sec. Pulmonary artery systolic pressure of 58 mmHg. Aortic valve area by planimetry was 1.2 squared cm. There was mild aortic stenosis associated with mild aortic regurgitation. Anterior echo-free space, history of pericardial fat pad noted. There is no pericardial effusion or obvious intracardiac mass or thrombus seen. cc: MD Robb Swift MD Timothy P. Weirich, MD
--- NOTE | 2018-05-07 19:44 | DISCHARGE SUMMARY ---
ADMISSION DATE: 05/03/2018 DISCHARGE DATE: 05/06/2018 DISCHARGE DIAGNOSES: 1. Acute renal failure. 2. Chronic atrial fibrillation. 3. Urinary tract infection. 4. Hypotension. HOSPITAL COURSE: An 87-year-old white female was admitted with hypotension. She had been hospitalized recently, sent to rehab and then went back home. They noticed that she was weaker and brought her in. Her blood pressure was in the 80s in the systolic measurements. The patient was given multiple fluid boluses, but we had to go about that very gingerly because of her history of congestive heart failure. She did not appear to be in heart failure in any way, shape or form during her hospitalization. Despite this, her blood pressure remained very low. She did not have a white cell count, fever, or evidence of urinary tract infection on urinalysis. We manipulated her atrial fibrillation medications because we thought the sotalol might be depressing her blood pressure. Her dose had been increased several weeks ago. Surprisingly, the patient's urine cultures came back positive for bacterial infection and we started her on low-dose nitrofurantoin. Just before this, her BUN and creatinine had bumped up from baseline of 0.8 to about 1.3. We again used fluid boluses since her urine output was fairly low and blood pressure was low. This did not seem to help her blood pressure. Up through this point in her hospitalization the patient's mental status had been excellent. She had been performing at above baseline, was very oriented and communicative. On the morning of her , I came into the room the patient was completely and utterly disoriented. She had pulled off all her clothes and bed covering and was mumbling incoherently. Review of her laboratory showed that her white blood cell count had gone from normal to 33,000. Her serum was hemoconcentrated. BUN and creatinine had shot up tremendously to about a creatinine of 2.3. She was again given a fluid bolus with very little output. I spoke frankly with her son that she could succumb at any time and there were very few interventions for someone her age that would result in meaningful extension of life. We did change up her antibiotics in the event that she was becoming septic. We offered some dopamine to try and support blood pressure. Nevertheless, she succumbed in the afternoon of the . Her family was present and were aware. No resuscitation efforts were undertaken. cc: Nito Crain MD
--- NOTE | 2018-05-08 08:09 | EKG Report ---
Test Performed on : 05/06/2018 05:57:11 AM Test Reason : afib Blood Pressure : / mmHG Vent. Rate : 113 BPM Atrial Rate : 131 BPM P-R Int : 000 ms QRS Dur : 080 ms QT Int : 346 ms P-R-T Axes : 000 061 158 degrees QTc Int : 474 ms Atrial fibrillation. with rapid ventricular response. Low voltage QRS Nonspecific ST and T wave abnormality Abnormal ECG When compared with ECG of 04-MAY-2018 06:51, No significant change was found Confirmed by Breann ECHEVERRIA, Nito Griffith ([id number]) on 05/08/2018 8:52:18 AM
== END 2018-05-06 17:45 | disposition expired | DRG 315 ==
LOC: ED 20:47 → SUATTDRO 05-03 03:42 → EDIPHOLD 05-03 03:42 → 3S 05-04 10:43
PROVIDERS: ADMIT Internal Medicine; ATTEND Internal Medicine
CPT/HCPCS: 71010; 71045; 80048; 80053; 80162; 81001; 82270; 82948; 83605; 83735; 83880; 84443; 84484; 85025; 87040; 87077; 87088; 87186; 87205; 87275; 87276; 87324; 87449; 87804; 89055; 93005; 93010; 93306; 96361; 96374; 97162; 97530; 99285; A9270; J1160; J1265; J2060; J2405; J2543; J7030; J7040; XXXXX